=== PATIENT | male | born 1965 | race Caucasian/White ===

== ENCOUNTER 2022-04-09 13:06 | Inpatient (IN) | payer OTHER, SELFPAY ==
--- NOTE | ~2022-04-09 | US_ITS ---
EXAMINATION: US ABDOMEN COMPLETE CLINICAL INFORMATION: Transaminitis. COMPARISON: None TECHNIQUE: Real-time imaging of the abdominal viscera. FINDINGS: PANCREAS: The visualized head and body of the pancreas appears unremarkable. Remainder of the pancreas is obscured by bowel gas. ABDOMINAL AORTA: The proximal, mid, and distal segments are normal in caliber. INFERIOR VENA CAVA: Visualized portions are normal. LIVER: Mild increased parenchymal echogenicity.. No focal hepatic lesion. There is no intrahepatic biliary duct dilatation seen. GALLBLADDER: Partially contracted . No evidence of stones, sludge, polyps, wall thickening or pericholecystic fluid. COMMON BILE DUCT: Normal in caliber measuring 0.3 cm in diameter. RIGHT KIDNEY: Normal. No hydronephrosis. No renal calculi or focal parenchymal lesions. The kidney measures 10.9 cm in maximum dimension. LEFT KIDNEY: Normal. No hydronephrosis. No renal calculi or focal parenchymal lesions. The kidney measures 10.9 cm in maximum dimension. SPLEEN: Normal. The spleen measures 10.9 cm in maximum dimension. FREE FLUID: None. US/US abdomen complete IMPRESSION: There is generalized increase in hepatic echotexture, consistent with fatty infiltration or hepatocellular disease. Please correlate clinically. No focal hepatic mass or intrahepatic biliary duct dilatation is seen. No evidence of gallstones.
--- NOTE | 2022-04-09 07:05 | ECG_ITS ---
Test Reason : MED CLEARANCE Blood Pressure : / mmHG Vent. Rate : 080 BPM Atrial Rate : 080 BPM P-R Int : 132 ms QRS Dur : 088 ms QT Int : 364 ms P-R-T Axes : 040 066 064 degrees QTc Int : 419 ms Normal sinus rhythm Normal ECG No previous ECGs available Referred By: Chantell Jimenez Electronically Signed By:BOLIVAR ALEGRIA MD
--- NOTE | 2022-04-09 13:09 | ED.PSYCH ---
HPI - Psych General Chief Complaint: Psychiatric Symptoms Stated Complaint: SI, HI Time Seen by Provider: 04/09/22 13:09 Source: patient and EMS Mode of arrival: EMS Limitations: no limitations History of Present Illness HPI Narrative: 57 yo male with longstanding history of bipolar disorder, PTSD requiring multiple inpatient hospitalizations in the past who presents to the ER via EMS on a section 12 from the community with SI. He reports a history of recent admission to [facility] for SI about 1 month ago. He reports knowing when I need to be committed and turn myself in. He was reportedly seen by [facility] where he went for help. He states he is suicidal and has access to guns with plan to shoot himself. He recently found out that his son has a heroin problem. He has been loaning his son money and found out it all has been going to drugs. Patient denies any illicit drug use himself, except for marijuana. He has been compliant with all of his medications and he goes crazy when I dont take them. He denies homocidal ideation which was initially reported from EMS. He states he does not hurt good people. MD complaint: suicidal ideation and homicidal ideation Onset (ago): unknown Duration: constant History of same: Yes Relieving factors: none Context: significant life stressor Associated psychiatric symptoms: depression and suicidal ideation Associated symptoms: denies other symptoms Treatments prior to arrival: placed on mental health hold If self harm: admits thoughts of self harm and has plan Details of plan: to shoot himself with a gun Related Data Allergies Allergy/AdvReac Type Severity Reaction Status Date / Time No Known Allergies Allergy Unverified 07/04/20 17:59 Review of Systems Review of Systems: Constitutional: No Fever, No Chills ENT/Mouth: No sore throat, No Rhinorrhea, No Swallowing Difficulty Eyes: No Eye Pain, No Swelling, No Redness Cardiovascular: No Chest Pain, No SOB, No Orthopnea, No Edema Respiratory: No Cough, No Sputum, No Wheezing, No dyspnea Gastrointestinal: No Nausea, No Vomiting, No Diarrhea, No abdominal Pain Genitourinary: No Dysuria, No Urinary Frequency, No Hematuria Musculoskeletal: No joint pain, No Myalgias Skin: No Skin Lesions, No rash Neuro: No Weakness, No Numbness, No Dizziness, No Headache Psych: + Anxiety/Panic, + Depression, +SI, No HI, No AH, No VH Heme/Lymph: No Bruising, No Lymphadenopathy Endocrine: No Polyuria, No Polydipsia PMFSH Social History Social History Advance Directives: No Advance Directives Information Provided: No Physical Exam Vital Signs: Vital Signs: Last Vital Signs Temp 97.6 F 04/09/22 13:24 Pulse 81 04/09/22 13:24 Resp 19 04/09/22 13:24 BP 109/72 04/09/22 13:24 Pulse Ox 98 04/09/22 13:24 O2 Del Method 04/09/22 13:24 BMI result Body Mass Index 22.7 Appearance: Alert. Oriented X3. No acute distress. Tearful Eyes: Pupils equal, round and reactive to light. ENT: Pharynx normal. Neck: Normal inspection. Neck supple. CVS: Normal heart rate and rhythm. Pulses normal. Respiratory: No respiratory distress. Breath sounds normal. Abdomen: Soft and nontender. +BS x4 Skin: Skin warm and dry. Normal skin color. Normal skin turgor. No rashes. Extremities: No lower extremity edema. Neuro/Psych: Oriented X 3. No motor deficit. No sensory deficit. CN II-XII intact. makes eye contact and is conversant, repetative. anxious, tearful, suicidal. Course Course Course Narrative: 57-year-old male with a history of bipolar disorder and PTSD who presents to the ER with suicidal ideation with a plan to shoot himself. He has access to guns. There was reported history of homicidal ideation as well but patient adamantly denying this on arrival to the ER. He is tearful and anxious. He states he knows when he needs to be committed. He is on a Section 12 from the community and reportedly is already a inpatient bed search. Will get medical clearance and closely monitor. Med rec pending. Reevaluation(s) Reevaluation #1: Labs showed pancytopenia. Unknown baseline. He also has mild elevation of his LFTs. Unknown if he has a history of liver disease/hepatitis. Will get records from [facility] for his baseline blood work. He is positive for marijuana and alcohol. ETOH 235. His lab workup here in June 2010 did show mild elevation of his transaminases. Still attempting to get records from [facility]. Reevaluation #2: Physician observation started at 15:30. Patient placed in physician observation because patient is awaiting [facility] evaluation for the possible need of inpatient psych admission. At the time observation was started patient's vital signs were stable. Patient is alert and oriented. Neuro exam is non-focal. CV: RRR and lungs are clear. Will continue to monitor. [facility] - Psych Lab Data Result diagrams: 04/09/22 13:55 04/09/22 13:55 Labs: Lab Results 04/09/22 04/09/22 04/09/22 Range/Units 13:49 13:50 13:55 WBC 3.3 L (4.8-10.8) X10*3/uL RBC 4.20 L (4.60-5.80) X10*6/uL Hgb 13.9 L (14.0-18.0) g/dl Hct 40.2 L (42.0-52.0) % MCV 95.7 (80.0-98.0) fL MCH 33.1 H (27.0-33.0) pg MCHC 34.6 (31.0-36.0) g/dl RDW 12.0 (11.0-16.0) % Plt Count 153 L (160-400) X10*3/uL MPV 9.1 L (9.4-12.4) fL Immature Gran % (Auto) 0.3 (0.0-0.4) % Neut % (Auto) 50.3 (45-73) % Lymph % (Auto) 35.0 (20-40) % Allen % (Auto) 12.9 H (2-11) % Eos % (Auto) 1.2 (0-4) % Baso % (Auto) 0.3 (0-2) % Lymph # (Auto) 1.2 (1.2-4.9) X10*3/uL Allen # (Auto) 0.4 (0.1-1.2) X10*3/uL Eos # (Auto) 0.0 (0.0-0.4) X10*3/uL Baso # (Auto) 0.0 (0.0-0.2) X10*3/uL Abs Immat Gran (auto) 0.01 (0.00-0.03) X10*3/uL Absolute Neuts (auto) 1.7 L (2.0-8.3) x10*3/uL Absolute Nucleated RBC 0.000 (0.0-0.012) X10*3/uL Nucleated RBC % (auto) 0.0 (0.0-0.2) /100WBC Sodium (135-145) mmol/L Potassium (3.3-5.1) mmol/L Chloride (96-108) mmol/L Carbon Dioxide (22-29) mmol/L Anion Gap (12-20) BUN (9-16) mg/dL Creatinine (0.5-1.4) mg/dL Estim Creat Clear Calc Estimated GFR Random Glucose (60-115) mg/dL Calcium (8.4-10.2) mg/dL Magnesium (1.6-2.6) mg/dL Total Bilirubin (0.0-1.0) mg/dL Direct Bilirubin (0.0-0.5) mg/dL AST (5-37) U/L ALT (0-40) U/L Alkaline Phosphatase (39-117) U/L Total Protein (6.5-8.0) g/dL Albumin (3.5-5.0) g/dL Urine Opiates Screen Not Detected (Not Detect) Urine Fentanyl Screen Not Detected (Not Detect) Ur Barbiturates Screen Not Detected (Not Detect) Ur Phencyclidine Scrn Not Detected (Not Detect) Ur Amphetamines Screen Not Detected (Not Detect) U Benzodiazepines Scrn Not Detected (Not Detect) Urine Cocaine Screen Not Detected (Not Detect) U Marijuana (THC) Screen POSITIVE H (Not Detect) Ethyl Alcohol mg/dL COVID-19 ([facility]) Negative (Negative) COVID-19 Clin Com See Note 04/09/22 04/09/22 Range/Units 13:55 13:55 WBC (4.8-10.8) X10*3/uL RBC (4.60-5.80) X10*6/uL Hgb (14.0-18.0) g/dl Hct (42.0-52.0) % MCV (80.0-98.0) fL MCH (27.0-33.0) pg MCHC (31.0-36.0) g/dl RDW (11.0-16.0) % Plt Count (160-400) X10*3/uL MPV (9.4-12.4) fL Immature Gran % (Auto) (0.0-0.4) % Neut % (Auto) (45-73) % Lymph % (Auto) (20-40) % Allen % (Auto) (2-11) % Eos % (Auto) (0-4) % Baso % (Auto) (0-2) % Lymph # (Auto) (1.2-4.9) X10*3/uL Allen # (Auto) (0.1-1.2) X10*3/uL Eos # (Auto) (0.0-0.4) X10*3/uL Baso # (Auto) (0.0-0.2) X10*3/uL Abs Immat Gran (auto) (0.00-0.03) X10*3/uL Absolute Neuts (auto) (2.0-8.3) x10*3/uL Absolute Nucleated RBC (0.0-0.012) X10*3/uL Nucleated RBC % (auto) (0.0-0.2) /100WBC Sodium 139 (135-145) mmol/L Potassium 3.3 (3.3-5.1) mmol/L Chloride 99 (96-108) mmol/L Carbon Dioxide 28 (22-29) mmol/L Anion Gap 15 (12-20) BUN 12 (9-16) mg/dL Creatinine 1.11 (0.5-1.4) mg/dL Estim Creat Clear Calc 69.1 Estimated GFR > 60 Random Glucose 120 H (60-115) mg/dL Calcium 9.1 (8.4-10.2) mg/dL Magnesium 1.9 (1.6-2.6) mg/dL Total Bilirubin 1.8 H (0.0-1.0) mg/dL Direct Bilirubin 1.0 H (0.0-0.5) mg/dL AST 190 H (5-37) U/L ALT 99 H (0-40) U/L Alkaline Phosphatase 84 (39-117) U/L Total Protein 7.4 (6.5-8.0) g/dL Albumin 4.4 (3.5-5.0) g/dL Urine Opiates Screen (Not Detect) Urine Fentanyl Screen (Not Detect) Ur Barbiturates Screen (Not Detect) Ur Phencyclidine Scrn (Not Detect) Ur Amphetamines Screen (Not Detect) U Benzodiazepines Scrn (Not Detect) Urine Cocaine Screen (Not Detect) U Marijuana (THC) Screen (Not Detect) Ethyl Alcohol 235 mg/dL COVID-19 ([facility]) (Negative) COVID-19 Clin Com Discharge Plan Discharge Clinical Impression: Suicidal ideation, Pancytopenia, Elevated liver enzymes Patient Disposition: Still a Patient
[2022-04-09 13:15] VITALS: BP 130/70; PULSE 92; O2SAT 95
[2022-04-09 13:24] VITALS: BP 109/72; PULSE 81; RESP 19; TEMP 36.4; O2SAT 98; BMI 22.7
[2022-04-09 14:10] LABS: MANUAL DIFF FLAG NO
[2022-04-09 14:13] LABS: Basophils Percent Auto 0.3 % (0-2); Eosinophils Percent Auto 1.2 % (0-4); Hematocrit 40.2 % (42.0-52.0); Hemoglobin 13.9 g/dl (14.0-18.0); Imm Gran Abs Auto 0.01 X10*3/uL (0.00-0.03); Imm Gran Pct Auto 0.3 % (0.0-0.4); Lymphocytes Absolute Auto 1.2 X10*3/uL (1.2-4.9); Mean Corpuscular HGB Conc 34.6 g/dl (31.0-36.0); Mean Corpuscular Hemoglobin 33.1 pg (27.0-33.0); Mean Corpuscular Volume 95.7 fL (80.0-98.0); Mean Platelet Volume 9.1 fL (9.4-12.4); Monocytes Absolute Auto 0.4 X10*3/uL (0.1-1.2); Monocytes Percent Auto 12.9 % (2-11); Neutrophils Absolute Auto 1.7 x10*3/uL (2.0-8.3); Neutrophils Percent Auto 50.3 % (45-73); Platelet Count 153 X10*3/uL (160-400); White Blood Count 3.3 X10*3/uL (4.8-10.8)
[2022-04-09 14:27] LABS: Ethanol 235 mg/dL
[2022-04-09 14:28] LABS: COVID-19 Test Negative (Negative); IDNOW Serial# 9DD0AD1C
[2022-04-09 14:29] LABS: Amphetamine Screen Urine Not Detected (Not Detect); Barbiturates, Urine Not Detected (Not Detect); Benzodiazepines Screen Urine Not Detected (Not Detect); Cannabinoid Screen Urine POSITIVE (Not Detect); Cocaine Screen Urine Not Detected (Not Detect); Fentanyl, urine Not Detected (Not Detect); Opiate Screen Urine Not Detected (Not Detect); Phencyclidine Screen Urine Not Detected (Not Detect)
[2022-04-09 14:31] LABS: Alanine Aminotransferase 99 U/L (0-40); Albumin Level 4.4 g/dL (3.5-5.0); Alkaline Phosphatase 84 U/L (39-117); Anion Gap 15 (12-20); Aspartate Amino Transferase 190 U/L (5-37); Bilirubin Total 1.8 mg/dL (0.0-1.0); Blood Urea Nitrogen 12 mg/dL (9-16); Calcium 9.1 mg/dL (8.4-10.2); Carbon Dioxide 28 mmol/L (22-29); Chloride 99 mmol/L (96-108); Creatinine Clr Calc Pharmacy 69.1; Estimated Glomerular Filt Rate > 60; Glucose Random 120 mg/dL (60-115); Magnesium 1.9 mg/dL (1.6-2.6); Potassium 3.3 mmol/L (3.3-5.1); Sodium 139 mmol/L (135-145); Total Protein 7.4 g/dL (6.5-8.0)
--- NOTE | 2022-04-09 14:46 | PC.NURSE ---
had si thoughts prior to coming to the ED, that's why I came here. I don't want to do something stupid like that , feels safe here and not suicidal at this moment, pleasant and cooperative, eating lunch, said that he cut his wrist yesterday but nothing is visible.
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
--- NOTE | 2022-04-09 18:35 | PC.NURSE ---
RN-RN report given to M3.
[2022-04-09 21:15] VITALS: BP 113/69; PULSE 85; RESP 16; TEMP 37.2; O2SAT 95; BMI 19.3
--- NOTE | 2022-04-09 21:51 | PC.ADMIT ---
Pt is a 57 year old male admitted for concerns of SI with a plan to use a gun. Pt is alert and oriented X4, VSS, Covid negative, Pt expressed to [facility] that he has been having thoughts of SI for the past 3 days. Pt endorsed history of SI attempt with a plan to cut his wrist. Speech is clear with regular rate and rhythm. Pt reports of AH and delusions involving father taking over his body and causing him to have homicidal thoughts directed at male predators and bad people .Pt is engaging, with slight hearing difficulty. Pt presents with tremors in the hands saying that he has been like that since he was a child. Pt is currently living with a friend and his . Admission orders obtained.
[2022-04-09] MEDS: QUEtiapine Fumarate 200 MG TABLET PO (23:04)
[2022-04-09] MEDS: risperiDONE 2 MG TABLET PO (23:04)
--- NOTE | 2022-04-10 02:47 | PC.NURSE ---
Staff's donato wrongfully brought on the unit. Neche retrieved from Pt's belongings. Belongings list updated.
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
[2022-04-10 09:34] LABS: Estimated Average Glucose 82 mg/dL; Hemoglobin A1c % 4.5 %
[2022-04-10 10:15] LABS: Cholesterol 160 mg/dL; HDL Cholesterol 102 mg/dL; LDL Cholesterol Calculated 48 mg/dl; Magnesium 1.5 mg/dL (1.6-2.6); Triglycerides 50 mg/dL
[2022-04-10 10:38] LABS: Free T4 (Free Thyroxine) 0.92 ng/dL (0.71-1.85); Thyroid Stimulating Hormone 6.03 uIU/mL (0.32-4.0)
[2022-04-10 11:11] LABS: Folate 6.6 ng/mL (> or = 4.0); Vitamin B12 726 pg/mL (200-900)
--- NOTE | 2022-04-10 11:25 | MHC.CLN ---
NUTRITION PATIENT IS 83% IBW WITH BMI=19.3. REPORTS DECREASED APPETITE AND WEIGHT LOSS PRIOR TO ADMISSION. REPORTS THAT APPETITE IS IMPROVING AND EATING BETTER NOW. ADDING ENSURE TID PER CONVERSATION WITH PATIENT. PROVIDES [address], [address] TO FOLLOW WEEKLY.
[2022-04-10 11:28] VITALS: BMI 19.3
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
[2022-04-10] MEDS: risperiDONE 2 MG TABLET PO (21:31)
[2022-04-10] MEDS: Magnesium Oxide 400 MG TABLET PO (21:31)
[2022-04-10] MEDS: QUEtiapine Fumarate 200 MG TABLET PO (21:31)
[2022-04-10 21:36] VITALS: BP 132/72; PULSE 84; RESP 18; TEMP 36.9; O2SAT 99
[2022-04-11 06:00] VITALS: BP 137/81; PULSE 90; RESP 16; TEMP 36.9; O2SAT 94
[2022-04-11 07:42] LABS: Hematocrit 38.2 % (42.0-52.0); Hemoglobin 13.3 g/dl (14.0-18.0); Mean Corpuscular HGB Conc 34.8 g/dl (31.0-36.0); Mean Corpuscular Hemoglobin 33.7 pg (27.0-33.0); Mean Corpuscular Volume 96.7 fL (80.0-98.0); Mean Platelet Volume 9.7 fL (9.4-12.4); Platelet Count 111 X10*3/uL (160-400); Red Blood Count 3.95 X10*6/uL (4.60-5.80); Red Cell Distribution Width 11.8 % (11.0-16.0)
[2022-04-11 07:48] LABS: White Blood Count 2.5 X10*3/uL (4.8-10.8)
[2022-04-11 07:52] LABS: Prothrombin Time 11.3 SEC (9.9-13.0)
[2022-04-11 08:09] LABS: Alanine Aminotransferase 84 U/L (0-40); Albumin Level 3.9 g/dL (3.5-5.0); Alkaline Phosphatase 74 U/L (39-117); Aspartate Amino Transferase 139 U/L (5-37); Bilirubin Direct 0.9 mg/dL (0.0-0.5); Bilirubin Total 1.5 mg/dL (0.0-1.0); Blood Urea Nitrogen 15 mg/dL (9-16); Calcium 9.5 mg/dL (8.4-10.2); Creatinine Clr Calc Pharmacy 81.6; Estimated Glomerular Filt Rate > 60; Glucose Fasting 98 mg/dL (60-99); Magnesium 1.5 mg/dL (1.6-2.6); Total Protein 6.6 g/dL (6.5-8.0)
[2022-04-11 08:16] LABS: Anion Gap 12 (12-20); Carbon Dioxide 28 mmol/L (22-29); Chloride 100 mmol/L (96-108); Potassium 4.2 mmol/L (3.3-5.1); Sodium 136 mmol/L (135-145)
[2022-04-11] MEDS: Magnesium Oxide 400 MG TABLET PO ×2 (08:45→16:41)
--- NOTE | 2022-04-11 11:18 | P.PNPSI_ITS ---
Subjective Subjective Date of Service: 04/11/22 Reason For Visit: SI, AUD Subjective Notes: Conditional Voluntary Interim History: abdominal ultrasound showed no gallstones and moderate fatty liver. continues with audotry and visual hallucinations. WBC, RBC, HgB and Hct trending lower this am. Consult with Marty Lou regarding ultrasound results and blood work: pancytopenia from ETOH use and chronic in nature; tW contacted Marty pulido to discuss pancytopenisa and he say no further treatment needed- other than no ETOH use. Medication Compliance: Yes Side effects from medications: No Attending Groups: No Review of Systems Acute medical concerns: No pancytopenia Medical Review of Systems: unchanged Review of Systems Review of Systems Constitutional: No Fever, No Chills ENT/Mouth: No sore throat, No Rhinorrhea, No Swallowing Difficulty Eyes: No Eye Pain, No Swelling, No Redness Cardiovascular: No Chest Pain, No SOB, No Orthopnea, No Edema Respiratory: No Cough, No Sputum, No Wheezing, No dyspnea Gastrointestinal: No Nausea, No Vomiting, No Diarrhea, No abdominal Pain Genitourinary: No Dysuria, No Urinary Frequency, No Hematuria Musculoskeletal: No joint pain, No Myalgias Skin: No Skin Lesions, No rash Neuro: No Weakness, No Numbness, No Dizziness, No Headache Psych: + Anxiety/Panic, + Depression, +SI, No HI, No AH, No VH Heme/Lymph: No Bruising, No Lymphadenopathy Endocrine: No Polyuria, No Polydipsia Yes all other systems are reviewed and are negative Mental Status Exam Mental Status Exam Narrative: appears thin. cooperative. speech incr in rate and amount, decr latency. mnl loudness and prosody. thoughts linear and logical in response to questions, spontaneously circumstantial/a litte loose. affect hyper-intense, nml range, min-labile. mood good. denies SI/HI. endorses what might be considered AVH, not in a psychotic way but rather more in a trauma-history way. he retains isight that the AVH are not real. Diagnostics Vital Signs (24Hr): Vital Signs - 24 hr 04/10/22 21:36 04/11/22 06:00 Temperature 98.4 F 98.4 F Pulse Rate 84 90 Respiratory Rate 18 16 Blood Pressure 132/72 137/81 Pulse Oximetry 99 94 Oxygen Delivery Method Room Air Room Air BMI result Body Mass Index 19.3 Labs Results: 04/11/22 07:16 04/11/22 07:16 Labs: Laboratory Results - last 48 hr 04/09/22 04/09/22 04/09/22 13:49 13:50 13:55 WBC 3.3 L RBC 4.20 L Hgb 13.9 L Hct 40.2 L MCV 95.7 MCH 33.1 H MCHC 34.6 RDW 12.0 Plt Count 153 L MPV 9.1 L Immature Gran % (Auto) 0.3 Neut % (Auto) 50.3 Lymph % (Auto) 35.0 [place] % (Auto) 12.9 H Eos % (Auto) 1.2 Baso % (Auto) 0.3 Lymph # (Auto) 1.2 [place] # (Auto) 0.4 Eos # (Auto) 0.0 Baso # (Auto) 0.0 Abs Immat Gran (auto) 0.01 Absolute Neuts (auto) 1.7 L Absolute Nucleated RBC 0.000 Nucleated RBC % (auto) 0.0 PT INR Sodium Potassium Chloride Carbon Dioxide Anion Gap BUN Creatinine Estim Creat Clear Calc Estimated GFR Random Glucose Fasting Glucose Estimat Average Glucose Hemoglobin A1c % Calcium Magnesium Total Bilirubin Direct Bilirubin AST ALT Alkaline Phosphatase Total Protein Albumin Triglycerides Cholesterol LDL Cholesterol, Calc HDL Cholesterol Vitamin B12 Folate TSH Free T4 Urine Opiates Screen Not Detected Urine Fentanyl Screen Not Detected Ur Barbiturates Screen Not Detected Ur Phencyclidine Scrn Not Detected Ur Amphetamines Screen Not Detected U Benzodiazepines Scrn Not Detected Urine Cocaine Screen Not Detected U Marijuana (THC) Screen POSITIVE H Ethyl Alcohol COVID-19 ([facility]) Negative COVID-19 Clin Com See Note 04/09/22 04/09/22 04/10/22 13:55 13:55 08:57 WBC RBC Hgb Hct MCV MCH MCHC RDW Plt Count MPV Immature Gran % (Auto) Neut % (Auto) Lymph % (Auto) [place] % (Auto) Eos % (Auto) Baso % (Auto) Lymph # (Auto) [place] # (Auto) Eos # (Auto) Baso # (Auto) Abs Immat Gran (auto) Absolute Neuts (auto) Absolute Nucleated RBC Nucleated RBC % (auto) PT INR Sodium 139 Potassium 3.3 Chloride 99 Carbon Dioxide 28 Anion Gap 15 BUN 12 Creatinine 1.11 Estim Creat Clear Calc 69.1 Estimated GFR > 60 Random Glucose 120 H Fasting Glucose Estimat Average Glucose 82 Hemoglobin A1c % 4.5 Calcium 9.1 Magnesium 1.9 Total Bilirubin 1.8 H Direct Bilirubin 1.0 H AST 190 H ALT 99 H Alkaline Phosphatase 84 Total Protein 7.4 Albumin 4.4 Triglycerides Cholesterol LDL Cholesterol, Calc HDL Cholesterol Vitamin B12 Folate TSH Free T4 Urine Opiates Screen Urine Fentanyl Screen Ur Barbiturates Screen Ur Phencyclidine Scrn Ur Amphetamines Screen U Benzodiazepines Scrn Urine Cocaine Screen U Marijuana (THC) Screen Ethyl Alcohol 235 COVID-19 ([facility]) COVID-19 [employer] 04/10/22 04/10/22 04/11/22 08:57 08:57 07:16 WBC 2.5 L RBC 3.95 L Hgb 13.3 L Hct 38.2 L MCV 96.7 MCH 33.7 H MCHC 34.8 RDW 11.8 Plt Count 111 L D MPV 9.7 Immature Gran % (Auto) Neut % (Auto) Lymph % (Auto) [place] % (Auto) Eos % (Auto) Baso % (Auto) Lymph # (Auto) [place] # (Auto) Eos # (Auto) Baso # (Auto) Abs Immat Gran (auto) Absolute Neuts (auto) Absolute Nucleated RBC 0.000 Nucleated RBC % (auto) 0.0 PT INR Sodium Potassium Chloride Carbon Dioxide Anion Gap BUN Creatinine Estim Creat Clear Calc Estimated GFR Random Glucose Fasting Glucose Estimat Average Glucose Hemoglobin A1c % Calcium Magnesium 1.5 L Total Bilirubin Direct Bilirubin AST ALT Alkaline Phosphatase Total Protein Albumin Triglycerides 50 Cholesterol 160 LDL Cholesterol, Calc 48 HDL Cholesterol 102 Vitamin B12 726 Folate 6.6 TSH 6.03 H Free T4 0.92 Urine Opiates Screen Urine Fentanyl Screen Ur Barbiturates Screen Ur Phencyclidine Scrn Ur Amphetamines Screen U Benzodiazepines Scrn Urine Cocaine Screen U Marijuana (THC) Screen Ethyl Alcohol COVID-19 ([facility]) [email or web address] 04/11/22 04/11/22 07:16 07:16 WBC RBC Hgb Hct MCV MCH MCHC RDW Plt Count MPV Immature Gran % (Auto) Neut % (Auto) Lymph % (Auto) [place] % (Auto) Eos % (Auto) Baso % (Auto) Lymph # (Auto) [place] # (Auto) Eos # (Auto) Baso # (Auto) Abs Immat Gran (auto) Absolute Neuts (auto) Absolute Nucleated RBC Nucleated RBC % (auto) PT 11.3 INR 1.0 Sodium 136 Potassium 4.2 D Chloride 100 Carbon Dioxide 28 Anion Gap 12 BUN 15 Creatinine 0.80 Estim Creat Clear Calc 81.6 Estimated GFR > 60 Random Glucose Fasting Glucose 98 Estimat Average Glucose Hemoglobin A1c % Calcium 9.5 Magnesium 1.5 L Total Bilirubin 1.5 H Direct Bilirubin 0.9 H AST 139 H ALT 84 H Alkaline Phosphatase 74 Total Protein 6.6 Albumin 3.9 Triglycerides Cholesterol LDL Cholesterol, Calc HDL Cholesterol Vitamin B12 Folate TSH Free T4 Urine Opiates Screen Urine Fentanyl Screen Ur Barbiturates Screen Ur Phencyclidine Scrn Ur Amphetamines Screen U Benzodiazepines Scrn Urine Cocaine Screen U Marijuana (THC) Screen Ethyl Alcohol COVID-19 ([facility]) COVID-19 Clin Com Imaging Radiology Impressions: ITS Impressions Abdomen Ultrasound 04/11/22 07:50 IMPRESSION: There is generalized increase in hepatic echotexture, consistent with fatty infiltration or hepatocellular disease. Please correlate clinically. No focal hepatic mass or intrahepatic biliary duct dilatation is seen. No evidence of gallstones. Medications Medications Current Medications Acetaminophen (Acetaminophen 325 Mg Tablet) 650 mg PO Q6H PRN PRN Reason: Headache/Pain Mild Scale (1-3) Al Hydroxide/Mg Hydroxide (Magnesium Hydrox/Alum Hydrox 30 Ml Oral.Susp) 30 ml PO Q6H PRN PRN Reason: Heartburn/Nausea Hydroxyzine HCl (Hydroxyzine Hcl 25 Mg Tablet) 25 mg PO Q6H PRN PRN Reason: Anxiety Lorazepam (Lorazepam 1 Mg Tablet) 1 mg PO Q2H PRN PRN Reason: CIWA 8-11 Lorazepam (Lorazepam 1 Mg Tablet) 2 mg PO Q2H PRN PRN Reason: CIWA 12-15 Lorazepam (Lorazepam 1 Mg Tablet) 3 mg PO Q2H PRN PRN Reason: CIWA > 15. alert MD. Magnesium Hydroxide (Milk Of Magnesia 30 Ml Oral.Susp) 30 ml PO DAILY PRN PRN Reason: Constipation Magnesium Oxide (Magnesium Oxide 400 Mg Tablet) 400 mg PO BIDPC [facility] Last Admin: 04/11/22 08:45 Dose: 400 mg Quetiapine Fumarate (Quetiapine Fumarate 200 Mg Tablet) 200 mg PO BEDTIME [facility] Last Admin: 04/10/22 21:31 Dose: 200 mg Risperidone (Risperidone 2 Mg Tablet) 2 mg PO BEDTIME [facility] Last Admin: 04/10/22 21:31 Dose: 2 mg Trazodone HCl (Trazodone Hcl 50 Mg Tablet) 50 mg PO BEDTIME PRN PRN Reason: Insomnia Allergies Allergies Allergy/AdvReac Type Severity Reaction Status Date / Time No Known Allergies Allergy Unverified 07/04/20 17:59 Assessment & Plan Assessment & Plan (1) Alcoholic fatty liver: Status: Acute Code(s): K70.0 - Alcoholic fatty liver Plan 57-year-old male admitted to inpatient psychiatry, consult requested for elevated LFTs and pancytopenia Alcoholic liver disease complicated by pancytopenia Follow-up INR, abdomen ultrasound, alcohol abstinence Alcohol dependence with mild withdrawal Will defer to primary team Hypomagnesemia Due to alcohol use, replace, monitor Plan CIWA ativan for WD symptoms restart/continue home meds of seroquel and risperidone. investigate elevated LFTs and pancytopenia. stabilize and return to outpt treatment. I spent 25_ minutes with the patient and/or on the patient floor today, greater than?50% of which was spent counseling/coordinating care. Reason for contiued inpatient stay Substantial Risk for: harm to self, inability to function, rapid decompensation and med/psych decompensation
[2022-04-11 16:02] VITALS: BP 116/76; PULSE 102; RESP 18; O2SAT 100
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
[2022-04-11 20:35] VITALS: BP 127/71; PULSE 88; RESP 18; TEMP 36.9; O2SAT 99
[2022-04-11] MEDS: QUEtiapine Fumarate 200 MG TABLET PO (21:12)
[2022-04-11] MEDS: risperiDONE 2 MG TABLET PO (21:12)
[2022-04-12 03:45] VITALS: BP 186/96; PULSE 125; RESP 20; TEMP 36.7; O2SAT 97
[2022-04-12] MEDS: LORazepam 1 MG TABLET PO ×2 (03:53→08:04)
[2022-04-12] MEDS: cloNIDine HCL 0.1 MG TABLET PO (03:53)
[2022-04-12 05:04] VITALS: BP 107/75; PULSE 105; RESP 18; TEMP 36.6; O2SAT 99
--- NOTE | 2022-04-12 05:37 | PC.NURSE ---
Addendum entered by Ree Cross RN 04/12/22 06:46: 0615, pt was found with blue craft paint on lips, when asked about it he stated it was candy . Original Note: Pt woke up at 0031, came into hallway appearing somewhat disoriented stating Do I need to clean to bathroom and floors? when redirected stated he was startled awake from the staff doing checks . Returned to bed. Pt came out again at 0230 stating I saw on the camera the lady fell and he was going in to help her while entering room 319. When asked if he knew where he was, pt seemed frustrated and said YES! Again at 0315 came out into hallway and stated he need to go outside to [place] [address] [facility] [address] When told that he was in [place] he stated I know that! Took VS which were 186/96, HR 125 at [address] cleaner Dr[address] Weinberg for med order for Clonidine. Clonidine and Ativan given at 0353. 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 Pt has also been speaking in bengali to me during this morning when he usually knows that I do not understand bengali. Repeated VS @ 0440 97.8, 107/75, HR 105, 99%. loading checker contacted again and ordered urgent labs, Ammonia, CBC, CMAP and U/A for pt. POC @ 0533 was 115. Will continue to monitor.
[2022-04-12 05:41] LABS: Glucose, Whole Blood 115 mg/dL (60-115)
[2022-04-12 06:46] LABS: Appearance Urine HAZY; Color Urine DK YELLOW; Glucose Urine UA NEG (NEG); Leukocyte Esterase Urine TRACE (NEG); Nitrite Urine NEG (NEG); Urine Blood 2+ (NEG); Urine Ketones NEG (NEG); Urine Protein TRACE MG/DL (NEG-TRACE)
[2022-04-12 06:56] LABS: Bacteria Urine TRACE /LPF; Hyaline Casts Urine 0-2 /LPF; Mucus Urine 1+ /LPF; Squamous Epithelial Cell Urine 2+ /LPF
[2022-04-12 07:00] LABS: MANUAL DIFF FLAG NO
[2022-04-12 07:02] LABS: Basophils Percent Auto 0.6 % (0-2); Eosinophils Absolute Auto 0.1 X10*3/uL (0.0-0.4); Hematocrit 39.4 % (42.0-52.0); Hemoglobin 13.4 g/dl (14.0-18.0); Imm Gran Abs Auto 0.02 X10*3/uL (0.00-0.03); Imm Gran Pct Auto 0.6 % (0.0-0.4); Lymphocytes Absolute Auto 0.8 X10*3/uL (1.2-4.9); Lymphocytes Percent Auto 24.3 % (20-40); Mean Corpuscular Hemoglobin 33.3 pg (27.0-33.0); Monocytes Absolute Auto 0.3 X10*3/uL (0.1-1.2); Monocytes Percent Auto 8.7 % (2-11); Neutrophils Absolute Auto 2.2 x10*3/uL (2.0-8.3); Neutrophils Percent Auto 63.8 % (45-73); Platelet Count 130 X10*3/uL (160-400); Red Blood Count 4.02 X10*6/uL (4.60-5.80); Red Cell Distribution Width 11.9 % (11.0-16.0); White Blood Count 3.5 X10*3/uL (4.8-10.8)
[2022-04-12 07:08] LABS: Ammonia 26 umol/L (13-55)
[2022-04-12 07:18] LABS: Alanine Aminotransferase 91 U/L (0-40); Albumin Level 4.5 g/dL (3.5-5.0); Alkaline Phosphatase 74 U/L (39-117); Anion Gap 13 (12-20); Aspartate Amino Transferase 127 U/L (5-37); Bilirubin Total 1.6 mg/dL (0.0-1.0); Blood Urea Nitrogen 14 mg/dL (9-16); Calcium 9.9 mg/dL (8.4-10.2); Carbon Dioxide 27 mmol/L (22-29); Chloride 101 mmol/L (96-108); Estimated Glomerular Filt Rate > 60; Glucose Fasting 138 mg/dL (60-99); Potassium 4.5 mmol/L (3.3-5.1); Sodium 136 mmol/L (135-145); Total Protein 7.5 g/dL (6.5-8.0)
[2022-04-12 07:55] VITALS: BP 99/66; PULSE 104; RESP 20; TEMP 36.6; O2SAT 98
[2022-04-12] MEDS: Acetaminophen 325 MG TABLET 650 MG PO (08:03)
[2022-04-12] MEDS: Magnesium Oxide 400 MG TABLET PO (08:04)
[2022-04-12 09:54] LABS: Appearance Urine HAZY; Color Urine YELLOW; Glucose Urine UA NEG (NEG); Leukocyte Esterase Urine TRACE (NEG); Nitrite Urine NEG (NEG); UACC Culture Trigger NO; Urine Blood 2+ (NEG); Urine Ketones NEG (NEG); Urine Protein NEG (NEG-TRACE)
[2022-04-12 10:00] VITALS: BP 100/66; PULSE 94; RESP 18; TEMP 36.9; O2SAT 100
[2022-04-12 10:06] LABS: UACC CULT YES
[2022-04-12 10:07] LABS: Bacteria Urine TRACE /LPF; Hyaline Casts Urine 0-2 /LPF; Mucus Urine 1+ /LPF; Squamous Epithelial Cell Urine TRACE /LPF
[2022-04-12 10:13] LABS: Ammonia 26 umol/L (13-55)
[2022-04-12 10:22] LABS: Anion Gap 13 (12-20); Carbon Dioxide 29 mmol/L (22-29); Chloride 97 mmol/L (96-108); Magnesium 1.6 mg/dL (1.6-2.6); Potassium 4.2 mmol/L (3.3-5.1); Sodium 135 mmol/L (135-145)
[2022-04-12] MEDS: LORazepam 1 MG TABLET 2 MG PO ×3 (10:34→13:55)
[2022-04-12 10:44] LABS: TSH reflex Free T4 5.39 uIU/mL (0.32-4.0)
[2022-04-12] MEDS: Thiamine HCL 200 MG/2 ML VIAL 100 MG IM (11:17)
[2022-04-12 11:34] LABS: Free T4 (Free Thyroxine) 1.01 ng/dL (0.71-1.85)
--- NOTE | 2022-04-12 12:18 | PM.PSYDC ---
DS: Providers Provider Date of Service: 04/12/22 Date of admission: 04/09/22 20:32 Date of discharge: 04/12/22 Primary care physician: [place] Physician Admitting clinician: Robert Ramirez Attending physician on admission: Robert Raimrez Consults: 04/10/22 15:36 Consult to Hospitalist Routine Consulting Provider: Hospitalist Reason For Exam: unexplained pancytopenia and LFTs elevation Attending physician on discharge: Ree Greenwood Discharging clinician: Ree Greenwood DS: Diagnosis Discharge Diagnosis (1) Alcoholic fatty liver: (2) Schizoaffective disorder: Status: Acute (3) Suicidal ideation: Status: Acute DS: Medications Discharge Medications Home Medications: Home Medications Medication Instructions Recorded Confirmed quetiapine 200 mg tablet (Seroquel) 1 tab PO BEDTIME 04/09/22 04/09/22 risperidone 2 mg tablet (Risperdal) 1 tab PO BEDTIME 04/09/22 04/09/22 Mental Status Exam Mental Status Exam Patient Appearance: Disheveled, Perspiring and Unkempt Patient Orientation: Person (internmittent), Place (no), Time (no) and Situation (no) Level of Consciousness: Disoriented Patient Behavior: Cooperative, Suspicious, Restless, Anxious and Confused Mood Description: Suspicious, Anxious and Sad Affect Description: Labile Patient Cognition Impaired: Yes Ability to Follow Directions: Poor Speech Pattern: Perseverating Memory Description: Immediate Impaired and Recent Impaired Hallucinations: Auditory (responding to internal stimuli) and Visual Thought Process: Disoriented and Confusion Judgement: Poor Data Data Completed and Pending Completed studies during hospitalization [Text1]: 04/09/22 04/09/22 04/09/22 13:49 13:50 13:55 WBC 3.3 L RBC 4.20 L Hgb 13.9 L Hct 40.2 L MCV 95.7 MCH 33.1 H MCHC 34.6 RDW 12.0 Plt Count 153 L MPV 9.1 L Immature Gran % (Auto) 0.3 Neut % (Auto) 50.3 Lymph % (Auto) 35.0 Turner % (Auto) 12.9 H Eos % (Auto) 1.2 Baso % (Auto) 0.3 Lymph # (Auto) 1.2 Turner # (Auto) 0.4 Eos # (Auto) 0.0 Baso # (Auto) 0.0 Abs Immat Gran (auto) 0.01 Absolute Neuts (auto) 1.7 L Absolute Nucleated RBC 0.000 Nucleated RBC % (auto) 0.0 Smear Path Review PT INR Sodium Potassium Chloride Carbon Dioxide Anion Gap BUN Creatinine Estim Creat Clear Calc Estimated GFR POC Glucose Random Glucose Fasting Glucose Estimat Average Glucose Hemoglobin A1c % Calcium Magnesium Total Bilirubin Direct Bilirubin AST ALT Alkaline Phosphatase Ammonia Total Creatine Kinase Total Protein Albumin Triglycerides Cholesterol LDL Cholesterol, Calc HDL Cholesterol Vitamin B1 Vitamin B12 Folate TSH Free T4 Urine Color Urine Appearance Urine pH Ur Specific [place] Urine Protein Urine Glucose (UA) Urine Ketones Urine Blood Urine Nitrite Ur Leukocyte Esterase Urine RBC Urine WBC Ur Squamous Epith Cells Urine Bacteria Hyaline Casts Urine Mucus Urine Opiates Screen Not Detected Urine Fentanyl Screen Not Detected Ur Barbiturates Screen Not Detected Ur Phencyclidine Scrn Not Detected Ur Amphetamines Screen Not Detected U Benzodiazepines Scrn Not Detected Urine Cocaine Screen Not Detected U Marijuana (THC) Screen POSITIVE H Ethyl Alcohol COVID-19 ([facility]) Negative COVID-19 Clin Com See Note 04/09/22 04/09/22 04/10/22 13:55 13:55 08:57 WBC RBC Hgb Hct MCV MCH MCHC RDW Plt Count MPV Immature Gran % (Auto) Neut % (Auto) Lymph % (Auto) Turner % (Auto) Eos % (Auto) Baso % (Auto) Lymph # (Auto) Turner # (Auto) Eos # (Auto) Baso # (Auto) Abs Immat Gran (auto) Absolute Neuts (auto) Absolute Nucleated RBC Nucleated RBC % (auto) Smear Path Review PT INR Sodium 139 Potassium 3.3 Chloride 99 Carbon Dioxide 28 Anion Gap 15 BUN 12 Creatinine 1.11 Estim Creat Clear Calc 69.1 Estimated GFR > 60 POC Glucose Random Glucose 120 H Fasting Glucose Estimat Average Glucose 82 Hemoglobin A1c % 4.5 Calcium 9.1 Magnesium 1.9 Total Bilirubin 1.8 H Direct Bilirubin 1.0 H AST 190 H ALT 99 H Alkaline Phosphatase 84 Ammonia Total Creatine Kinase Total Protein 7.4 Albumin 4.4 Triglycerides Cholesterol LDL Cholesterol, Calc HDL Cholesterol Vitamin B1 Vitamin B12 Folate TSH Free T4 Urine Color Urine Appearance Urine pH Ur Specific [place] Urine Protein Urine Glucose (UA) Urine Ketones Urine Blood Urine Nitrite Ur Leukocyte Esterase Urine RBC Urine WBC Ur Squamous Epith Cells Urine Bacteria Hyaline Casts Urine Mucus Urine Opiates Screen Urine Fentanyl Screen Ur Barbiturates Screen Ur Phencyclidine Scrn Ur Amphetamines Screen U Benzodiazepines Scrn Urine Cocaine Screen U Marijuana (THC) Screen Ethyl Alcohol 235 COVID-19 ([facility]) COVID-19 Clin Com 04/10/22 04/10/22 04/11/22 08:57 08:57 07:16 WBC 2.5 L RBC 3.95 L Hgb 13.3 L Hct 38.2 L MCV 96.7 MCH 33.7 H MCHC 34.8 RDW 11.8 Plt Count 111 L D MPV 9.7 Immature Gran % (Auto) Neut % (Auto) Lymph % (Auto) Turner % (Auto) Eos % (Auto) Baso % (Auto) Lymph # (Auto) Turner # (Auto) Eos # (Auto) Baso # (Auto) Abs Immat Gran (auto) Absolute Neuts (auto) Absolute Nucleated RBC 0.000 Nucleated RBC % (auto) 0.0 Smear Path Review Pending PT INR Sodium Potassium Chloride Carbon Dioxide Anion Gap BUN Creatinine Estim Creat Clear Calc Estimated GFR POC Glucose Random Glucose Fasting Glucose Estimat Average Glucose Hemoglobin A1c % Calcium Magnesium 1.5 L Total Bilirubin Direct Bilirubin AST ALT Alkaline Phosphatase Ammonia Total Creatine Kinase Total Protein Albumin Triglycerides 50 Cholesterol 160 LDL Cholesterol, Calc 48 HDL Cholesterol 102 Vitamin B1 Vitamin B12 726 Folate 6.6 TSH 6.03 H Free T4 0.92 Urine Color Urine Appearance Urine pH Ur Specific [place] Urine Protein Urine Glucose (UA) Urine Ketones Urine Blood Urine Nitrite Ur Leukocyte Esterase Urine RBC Urine WBC Ur Squamous Epith Cells Urine Bacteria Hyaline Casts Urine Mucus Urine Opiates Screen Urine Fentanyl Screen Ur Barbiturates Screen Ur Phencyclidine Scrn Ur Amphetamines Screen U Benzodiazepines Scrn Urine Cocaine Screen U Marijuana (THC) Screen Ethyl Alcohol COVID-19 ([facility]) COVID-19 Clin Com 04/11/22 04/11/22 04/12/22 07:16 07:16 05:35 WBC RBC Hgb Hct MCV MCH MCHC RDW Plt Count MPV Immature Gran % (Auto) Neut % (Auto) Lymph % (Auto) Turner % (Auto) Eos % (Auto) Baso % (Auto) Lymph # (Auto) Turner # (Auto) Eos # (Auto) Baso # (Auto) Abs Immat Gran (auto) Absolute Neuts (auto) Absolute Nucleated RBC Nucleated RBC % (auto) Smear Path Review PT 11.3 INR 1.0 Sodium 136 Potassium 4.2 D Chloride 100 Carbon Dioxide 28 Anion Gap 12 BUN 15 Creatinine 0.80 Estim Creat Clear Calc 81.6 Estimated GFR > 60 POC Glucose 115 Random Glucose Fasting Glucose 98 Estimat Average Glucose Hemoglobin A1c % Calcium 9.5 Magnesium 1.5 L Total Bilirubin 1.5 H Direct Bilirubin 0.9 H AST 139 H ALT 84 H Alkaline Phosphatase 74 Ammonia Total Creatine Kinase Total Protein 6.6 Albumin 3.9 Triglycerides Cholesterol LDL Cholesterol, Calc HDL Cholesterol Vitamin B1 Vitamin B12 Folate TSH Free T4 Urine Color Urine Appearance Urine pH Ur Specific [place] Urine Protein Urine Glucose (UA) Urine Ketones Urine Blood Urine Nitrite Ur Leukocyte Esterase Urine RBC Urine WBC Ur Squamous Epith Cells Urine Bacteria Hyaline Casts Urine Mucus Urine Opiates Screen Urine Fentanyl Screen Ur Barbiturates Screen Ur Phencyclidine Scrn Ur Amphetamines Screen U Benzodiazepines Scrn Urine Cocaine Screen U Marijuana (THC) Screen Ethyl Alcohol COVID-19 ([facility]) COVID-19 Clin Com 04/12/22 04/12/22 04/12/22 06:36 06:55 06:55 WBC 3.5 L RBC 4.02 L Hgb 13.4 L Hct 39.4 L MCV 98.0 MCH 33.3 H MCHC 34.0 RDW 11.9 Plt Count 130 L MPV 9.0 L Immature Gran % (Auto) 0.6 H Neut % (Auto) 63.8 Lymph % (Auto) 24.3 Turner % (Auto) 8.7 Eos % (Auto) 2.0 Baso % (Auto) 0.6 Lymph # (Auto) 0.8 L Turner # (Auto) 0.3 Eos # (Auto) 0.1 Baso # (Auto) 0.0 Abs Immat Gran (auto) 0.02 Absolute Neuts (auto) 2.2 Absolute Nucleated RBC 0.000 Nucleated RBC % (auto) 0.0 Smear Path Review PT INR Sodium 136 Potassium 4.5 Chloride 101 Carbon Dioxide 27 Anion Gap 13 BUN 14 Creatinine 0.87 Estim Creat Clear Calc 75.0 Estimated GFR > 60 POC Glucose Random Glucose Fasting Glucose 138 H D Estimat Average Glucose Hemoglobin A1c % Calcium 9.9 Magnesium Total Bilirubin 1.6 H Direct Bilirubin AST 127 H ALT 91 H Alkaline Phosphatase 74 Ammonia Total Creatine Kinase 115 Total Protein 7.5 Albumin 4.5 Triglycerides Cholesterol LDL Cholesterol, Calc HDL Cholesterol Vitamin B1 Vitamin B12 Folate TSH Free T4 Urine Color DK YELLOW Urine Appearance HAZY Urine pH 6.0 Ur Specific [place] 1.010 Urine Protein TRACE Urine Glucose (UA) NEG Urine Ketones NEG Urine Blood 2+ H Urine Nitrite NEG Ur Leukocyte Esterase TRACE H Urine RBC 1-4 Urine WBC 5-9 H Ur Squamous Epith Cells 2+ Urine Bacteria TRACE Hyaline Casts 0-2 Urine Mucus 1+ Urine Opiates Screen Urine Fentanyl Screen Ur Barbiturates Screen Ur Phencyclidine Scrn Ur Amphetamines Screen U Benzodiazepines Scrn Urine Cocaine Screen U Marijuana (THC) Screen Ethyl Alcohol COVID-19 ([facility]) COVID-19 Clin Com 04/12/22 04/12/22 04/12/22 06:55 09:40 09:59 WBC RBC Hgb Hct MCV MCH MCHC RDW Plt Count MPV Immature Gran % (Auto) Neut % (Auto) Lymph % (Auto) Turner % (Auto) Eos % (Auto) Baso % (Auto) Lymph # (Auto) Turner # (Auto) Eos # (Auto) Baso # (Auto) Abs Immat Gran (auto) Absolute Neuts (auto) Absolute Nucleated RBC Nucleated RBC % (auto) Smear Path Review PT INR Sodium 135 Potassium 4.2 Chloride 97 Carbon Dioxide 29 Anion Gap 13 BUN Creatinine Estim Creat Clear Calc Estimated GFR POC Glucose Random Glucose Fasting Glucose Estimat Average Glucose Hemoglobin A1c % Calcium Magnesium 1.6 Total Bilirubin Direct Bilirubin AST ALT Alkaline Phosphatase Ammonia 26 Total Creatine Kinase Total Protein Albumin Triglycerides Cholesterol LDL Cholesterol, Calc HDL Cholesterol Vitamin B1 Vitamin B12 Folate TSH 5.39 H Free T4 1.01 Urine Color YELLOW Urine Appearance HAZY Urine pH 6.0 Ur Specific [place] 1.010 Urine Protein NEG Urine Glucose (UA) NEG Urine Ketones NEG Urine Blood 2+ H Urine Nitrite NEG Ur Leukocyte Esterase TRACE H Urine RBC 1-4 Urine WBC 5-9 H Ur Squamous Epith Cells TRACE Urine Bacteria TRACE Hyaline Casts 0-2 Urine Mucus 1+ Urine Opiates Screen Urine Fentanyl Screen Ur Barbiturates Screen Ur Phencyclidine Scrn Ur Amphetamines Screen U Benzodiazepines Scrn Urine Cocaine Screen U Marijuana (THC) Screen Ethyl Alcohol COVID-19 ([facility]) COVID-19 Jade Magnet Com 04/12/22 04/12/22 04/12/22 09:59 09:59 09:59 WBC RBC Hgb Hct MCV MCH MCHC RDW Plt Count MPV Immature Gran % (Auto) Neut % (Auto) Lymph % (Auto) Turner % (Auto) Eos % (Auto) Baso % (Auto) Lymph # (Auto) Turner # (Auto) Eos # (Auto) Baso # (Auto) Abs Immat Gran (auto) Absolute Neuts (auto) Absolute Nucleated RBC Nucleated RBC % (auto) Smear Path Review PT INR Sodium Potassium Chloride Carbon Dioxide Anion Gap BUN Creatinine Estim Creat Clear Calc Estimated GFR POC Glucose Random Glucose Fasting Glucose Estimat Average Glucose Hemoglobin A1c % Calcium Magnesium Total Bilirubin Direct Bilirubin AST ALT Alkaline Phosphatase Ammonia 26 Total Creatine Kinase Total Protein Albumin Triglycerides Cholesterol LDL Cholesterol, Calc HDL Cholesterol Vitamin B1 Pending Vitamin B12 Pending Folate Pending TSH Free T4 Urine Color Urine Appearance Urine pH Ur Specific [place] Urine Protein Urine Glucose (UA) Urine Ketones Urine Blood Urine Nitrite Ur Leukocyte Esterase Urine RBC Urine WBC Ur Squamous Epith Cells Urine Bacteria Hyaline Casts Urine Mucus Urine Opiates Screen Urine Fentanyl Screen Ur Barbiturates Screen Ur Phencyclidine Scrn Ur Amphetamines Screen U Benzodiazepines Scrn Urine Cocaine Screen U Marijuana (THC) Screen Ethyl Alcohol COVID-19 ([facility]) COVID-19 Clin Com 04/12/22 Unknown Urine clean catch - Urine alves top Urine Culture - Pending Imaging Diagnostic Imaging Impressions Abdomen Ultrasound 04/11/22 07:50 IMPRESSION: There is generalized increase in hepatic echotexture, consistent with fatty infiltration or hepatocellular disease. Please correlate clinically. No focal hepatic mass or intrahepatic biliary duct dilatation is seen. No evidence of gallstones. DS: Summary Hospital Course Hospital Course: pt admitted with SI with paln to shoot self withgun; pt was oriented and alet upon admission; on 04/11 overnight pt had acute mental stautus changes and although not typical WD sympotms was started on thiamine and ativan. pt did not have elvated BP or P. He is currently acutely delerious, has pancytopenia, blood in uriney, sweaty, tremulous. Status at Discharge Cognitive/behavioral status at discharge: ACUTE DELERIUM Functional status at discharge: independent ambulation (IMBALANCED GAIT AND PITCHING FORWAD ) Overall status at discharge: patient is not back to baseline Time Spent with Patient Time attestation: Total time spent providing and/or coordinating discharge services: Time spent: Greater than 30 minutes Specific discharge activities: Transfer to [facility] [place] Discharge Plan Discharge Disposition: [facility] Referrals: [facility] [Physician] - 1 Week Discharge Medications: No Action quetiapine [Seroquel] 200 mg tablet 1 tab PO BEDTIME risperidone [Risperdal] 2 mg tablet 1 tab PO BEDTIME Discharge Orders: Discharge Order (Routine); Ordered 04/12/22 Ordered By: Ree Greenwood Forms: Patient Portal Discharge page, Community Support Care Plan Goals: stabilize medically reassess for inpatient psych when medically cleared Health Concerns: acute delrium pancytopenia ?UTI ?wernicke's encephalopathy Plan of Treatment: transfer to [facility] [place] Assessment: delerium, confused, labile mood, sad, tremulous, sweating
[2022-04-12 13:46] VITALS: BP 115/73; PULSE 96; RESP 16; TEMP 37; O2SAT 96
--- NOTE | 2022-04-12 16:52 | PC.NURSE ---
When I arrived on the unit I assessed patient who was on 1:1. He was awake but appeared disorganized. He was able to identify the day of the week and accurately say he is in the hospital. Pt has tremors and auditory and visual hallucinations at baseline.Vital signs were stable at 8am. CIWA @8am was 11 with patient scoring due to visual hallucinations and agitation. I sent the following text to Miriam Greenwood SAILBOAT CAPTAIN, Elbert - experienced mental status changes during the night. Dr Weinberg aware. New labs are mostly resulted. I scored him 11 on CIWA this am and gave him ativan 1mg. ( He had one a few hours ago as well. I am concerned about the urine. He denies pain but has blood in his urine. It also looks questionably positive for UTI. I called lab and Dr Weinberg had not ordered reflex culture ( just reflex microscopic) and the lab has no urine left to culture. Miriam Greenwood then ordered another urinalysis with reflex micro and reflex culture. Repeat urine was collected, notably edis in color and patient had urinary hesitancy during the collection of the urine. Abnormal results of blood work and urinalysis reported to Miriam Greenwood SAILBOAT CAPTAIN. at 8:46 I informed Miriam Greenwood by tiger text that patient remained agitated and confused. At 10:12 am I informed Miriam Greenwood by tiger text He is very agitated/ disorganized/ disoriented, unsteady on his feet. Maybe delirium tremens? He is not presenting as a typical person in withdrawal - no nausea, no sweating, denies headache. tremor is baseline and vitals are stable. Please advise if you want me to give more ativan or not At 10:30 am CIWA was 19. Pt was unsteady on hi feet. At 10:40 after no response from Miguelito Greenwood SAILBOAT CAPTAIN by text or phone I contacted Dr Weinberg by phone. He ordered thiamine 100mg IM and stat CPKs which I entered TOs for. In addition he ordered reconsult hospitalist. I sent tiger text to Dr Carmine DOMÍNGUEZ. Ativan 2mg was given per CIWA protocol. No effect noted. 12n Ciwa was 16. an additional Ativan 2mg was given po. Miriam Greenwood SAILBOAT CAPTAIN informed and assessed patient. Dr Lou and Miriam Greenwood decided to transfer pt to [facility] [place]. Per Marissa Dillard Nurse Insurance Actuary no bed available until 1pm. Multiple attempts were made to call Nurse to Nurse to Mallory SOTO on [facility] [place] and to coordinate transfer without return call. Patient was increasingly agitated and was placed on 2:1 with staff at 1pm. He was attempting to climb sewell and furniture and was more and more difficult to redirect. He was disorganized and hallucinating. His gait was unsteady yet he appeared to have akasthesia. He asked his water pitcher to make him azerbaijani food. He was petting the wall telling me it was a nice dog. He was notably more agitated and kept trying to lift furniture. at 1:43 I informed Miriam Greenwood of the above by tiger text and she ordered an additional one time dose of ativan 2mg po. Again there was no effect. At 2:55 I was informed the [facility] [place] bed was available. I called Nurse to nurse to Mallory SOTO on [facility] [place] at 2:57. At 3:15pm Patient was transferred to [facility] [place] by wheelchair with sitter and security screener.
[2022-04-13 09:35] LABS: Folate 10.8 ng/mL (> or = 4.0); Vitamin B12 779 pg/mL (200-900)
[2022-04-17 11:46] LABS: Vitamin B1 <6 nmol/L (8-30)
== END 2022-04-12 15:08 | disposition short-term general hospital (02) | DRG 754 ==
LOC: HO.ED 16:50 → HO.PADLT16 20:34
PROVIDERS: Clinical Nurse Specialist Psychiatric/Mental Health; Internal Medicine; Physician Assistant; Psychiatry & Neurology Psychiatry; Admitting Provider Registered Nurse; Emergency Provider Emergency Medicine Emergency Medical Services; Visit Provider Psychiatry & Neurology Psychiatry
DX: F32.A Depression, unspecified (principal); D61.818 Other pancytopenia; F25.9 Schizoaffective disorder, unspecified; R45.851 Suicidal ideations; R45.850 Homicidal ideations; F10.239 Alcohol dependence with withdrawal, unspecified; E83.42 Hypomagnesemia; K70.9 Alcoholic liver disease, unspecified; F43.10 Post-traumatic stress disorder, unspecified; Z20.822 Contact with and (suspected) exposure to COVID-19; Z91.51 Personal history of suicidal behavior; Z79.899 Other long term (current) drug therapy
CPT/HCPCS: 36415; 76700; 80048; 80051; 80053; 80061; 80076; 80307; 81001; 82077; 82140; 82550; 82607; 82746; 82947; 83036; 83735; 84425; 84439; 84443; 85025; 85027; 85610; 87086; 87635; 93005; 99285; J3411

== ENCOUNTER 2022-04-12 15:30 | Inpatient (IN) | payer OTHER, SELFPAY ==
--- NOTE | 2022-04-12 12:13 | P.HPHOSP_ITS ---
History of Present Illness Date of Service: 04/12/22 Chief Complaint: ams 57M who was admitted to inpatient psychiatry for SI. course was then complicated by restlessness, tremor, confusion, altered mental status. patient has history of alcohol dependence with alcoholic fatty liver and recent episode of alcoholic hepatitis at [facility] 2020. He drinks about 72 oz of beer per day, his last drink was about 1 week prior to presentation though others have received history of 72 hours. I had seen the patient in consultation on 04/10/2022, that time patient showed mild symptoms of withdrawal, ultrasound abdomen was done which showed fatty liver, lftS and pancytopenia likely around baseline, improved from episode in 2020. family patient's symptoms have worsened, his CIWA scale is now 17. He was given Ativan p.o. but only had mild improvement. Patient is self denies any symptoms. Review of Systems Review of Systems: Yes all other systems are reviewed and are negative [facility] Medical History (Updated 04/12/22 @ 12:18 by Phillip Lou MD) Alcoholic fatty liver Family History Mother No family history of coronary artery disease Other Diabetes Social History Household Members: Friend(s) Housing: Apartment Do you presently have visiting nurse or other home services: No Alcohol intake: current Patient Tobacco Use Status: Former Tobacco user Substance Use Type: Marijuana Advance Directives: No Advance Directives Information Provided: No service: No Sexual orientation: Straight/Heterosexual Meds Allergies Allergy/AdvReac Type Severity Reaction Status Date / Time No Known Allergies Allergy Unverified 07/04/20 17:59 Active Medications: Current Medications Enoxaparin Sodium (Enoxaparin Sodium 40 Mg/0.4 Ml Syringe) 40 mg SUBCUT DAILY [facility] Folic Acid (Folic Acid 1 Mg Tablet) 1 mg PO DAILY [facility] Thiamine HCl 100 mg/ Sodium (Chloride) 101 mls @ 202 mls/hr IV BID [facility] Multivitamins/Vitamin C (Multivitamin Tablet) 1 tab PO DAILY [facility] Pharmacy Consult (Consult Rx Etoh Phenob Po Only) 1 each MISCELLANE ONCE PRN; Protocol PRN Reason: Consult order Sodium Chloride (0.9 % Sodium Chloride Flush 3 Ml Syringe) 3 ml IVFLUSH QSHIFT [facility] Home Medications Medication Instructions Recorded Confirmed Last Taken Type quetiapine 200 mg tablet (Seroquel) 1 tab PO BEDTIME 04/09/22 04/09/22 Unknown History risperidone 2 mg tablet (Risperdal) 1 tab PO BEDTIME 04/09/22 04/09/22 Unknown History Physical Exam Vital Signs and Narrative: General: agitated, restless, tremulous HEENT: atraumatic Neck: normal to visual inspection CVS: S1, S2, RRR Resp: CTA bilateral Chest: non tender GI: soft, non tender, non distended : no CVA tenderness Skin: no rashes Extremities: no edema Neuro: Oriented X3, tremor Psych: cooperative Assessment and Plan (1) Schizoaffective disorder: Status: Acute Plan 57M presented with ams alcohol dependence with withdrawal transfer to medicine telemetry phenobarbital protocol monitor CIWA multi vitamin, thiamine, folic acid alcoholic fatty liver with pancytopenia abstinence recommended schizoaffective disorder with suicidal ideation Seroquel and risperidone one-to-one monitoring DVT prophylaxis with Lovenox full code due to severity of patient's withdrawal symptoms and at risk for further decompensation likely to require at least 2 midnights in the hospital Quality Stroke Does the patient have a stroke diagnosis?: No VTE Prior VTE?: No VTE Risk Level:: Medical - moderate - high VTE Device Contraindication: Treatment Not Indicated VTE Drug Contraindication: N/A - Med Ordered
--- NOTE | 2022-04-12 15:34 | PHA.MEDREC ---
Pharmacy Consult ? Medication Reconciliation Pharmacy has completed the medication reconciliation.
[2022-04-12] MEDS: PHENobarbitaL 200 MG, PHENobarbitaL 30 MG 230 MG PO (17:48)
[2022-04-12] MEDS: Magnesium Oxide 400 MG TABLET PO (18:42)
[2022-04-12] MEDS: PHENobarbitaL 100 MG, PHENobarbitaL 60 MG 160 MG PO (20:35)
[2022-04-12] MEDS: QUEtiapine Fumarate 200 MG TABLET PO ×2 (20:36)
[2022-04-12] MEDS: risperiDONE 2 MG TABLET PO (20:36)
[2022-04-13 07:35] LABS: Hematocrit 38.5 % (42.0-52.0); Hemoglobin 13.1 g/dl (14.0-18.0); Mean Corpuscular Hemoglobin 33.5 pg (27.0-33.0); Mean Corpuscular Volume 98.5 fL (80.0-98.0); Mean Platelet Volume 9.9 fL (9.4-12.4); Platelet Count 113 X10*3/uL (160-400); Red Blood Count 3.91 X10*6/uL (4.60-5.80); White Blood Count 2.8 X10*3/uL (4.8-10.8)
[2022-04-13 07:46] LABS: Alanine Aminotransferase 132 U/L (0-40); Alkaline Phosphatase 66 U/L (39-117); Anion Gap 11 (12-20); Aspartate Amino Transferase 204 U/L (5-37); Bilirubin Total 1.6 mg/dL (0.0-1.0); Blood Urea Nitrogen 10 mg/dL (9-16); Calcium 8.9 mg/dL (8.4-10.2); Carbon Dioxide 27 mmol/L (22-29); Chloride 102 mmol/L (96-108); Estimated Glomerular Filt Rate > 60; Glucose Random 84 mg/dL (60-115); Potassium 3.7 mmol/L (3.3-5.1); Sodium 136 mmol/L (135-145); Total Protein 6.7 g/dL (6.5-8.0)
--- NOTE | 2022-04-13 09:03 | MHC.CM.PN ---
CM attempted to meet with Patient at bedside and his RN indicated that he was sleeping soundly. CM spoke with first Contact/Mother/Stephany @ [phone] who indicated that she knows nothing about her Son. CM attempted to reach Second Contact/Sister/Olivia @ [phone] and the mailbox was full. From what CM can gather, Patient came to the medical floor from M3/Psych, where Patient was being treated for SI and the goal appears to be for Patient to return there once medically cleared. FRANCO has initiated and will follow for dc planning.
[2022-04-13] MEDS: Thiamine HCL 100 MG TABLET PO ×3 (10:16→19:53)
[2022-04-13] MEDS: Multivitamin TABLET 1 TAB PO (10:16)
[2022-04-13] MEDS: Magnesium Oxide 400 MG TABLET PO ×2 (10:16→16:40)
[2022-04-13] MEDS: Folic Acid 1 MG TABLET PO (10:16)
[2022-04-13] MEDS: PHENobarbitaL 15 MG TABLET 45 MG PO ×2 (10:17→19:54)
[2022-04-13] MEDS: Enoxaparin Sodium 40 MG/0.4 ML SYRINGE SUBCUT (10:18)
[2022-04-13 10:38] LABS: Ammonia 23 umol/L (13-55)
--- NOTE | 2022-04-13 11:39 | MHC.CLN ---
F/U PT TRANSFERRED FROM BEHAVIORAL HEALTH UNIT TO MEDICAL FLOOR SEE FULL CLINICAL NUTRITION ASSESSMENT DATED 04/10/22 WILL RE-START ENSURE TID WITH REGULAR DIET TO INCREASE KCALS MONITOR PO INTAKE CLOSELY RD TO CONTINUE FOLLOWING WEEKLY
--- NOTE | 2022-04-13 11:57 | HO.PM.IMPN ---
Subjective Subjective Date of Service: 04/13/22 Interval History: cc: ams interval history:resting comfortably, ciwa improved Review of Systems Review of Systems: Yes Unobtainable due to mental condition Physical Exam Vital Signs: General: obtunded,, no acute distress Resp: CTA bilateral, no accessory muscles used CVS: S1,S2,RRR GI: soft, non tender, non distended Neuro: motor grossly intact, alert Psych: iampired insight Objective Data Active Medications Enoxaparin Sodium (Enoxaparin Sodium 40 Mg/0.4 Ml Syringe) 40 mg SUBCUT DAILY [facility] Last Admin: 04/13/22 10:18 Dose: 40 mg Documented By: LORRI Folic Acid (Folic Acid 1 Mg Tablet) 1 mg PO DAILY [facility] Last Admin: 04/13/22 10:16 Dose: 1 mg Documented By: LORRI Hydroxyzine HCl (Hydroxyzine Hcl 25 Mg Tablet) 25 mg PO Q6H PRN PRN Reason: Anxiety Lorazepam (Lorazepam 1 Mg Tablet) 2 mg PO Q2H PRN PRN Reason: CIWA 12-15 Magnesium Oxide (Magnesium Oxide 400 Mg Tablet) 400 mg PO BIDPC [facility] Last Admin: 04/13/22 10:16 Dose: 400 mg Documented By: LORRI Multivitamins/Vitamin C (Multivitamin Tablet) 1 tab PO DAILY [facility] Last Admin: 04/13/22 10:16 Dose: 1 tab Documented By: LORRI Pharmacy Consult (Consult Rx Etoh Phenob Po Only) 1 each MISCELLANE ONCE PRN; Protocol PRN Reason: Consult order Phenobarbital (Phenobarbital 15 Mg Tablet) 45 mg PO BID [facility]; Protocol Stop: 04/14/22 21:01 Last Admin: 04/13/22 10:17 Dose: 45 mg Documented By: LORRI Phenobarbital (Phenobarbital 15 Mg Tablet) 15 mg PO BID [facility]; Protocol Stop: 04/16/22 21:01 Phenobarbital (Phenobarbital 15 Mg Tablet) 15 mg PO DAILY [facility]; Protocol Stop: 04/18/22 09:01 Quetiapine Fumarate (Quetiapine Fumarate 200 Mg Tablet) 200 mg PO BEDTIME [facility] Last Admin: 04/12/22 20:36 Dose: 200 mg Documented By: ANTOIC Quetiapine Fumarate (Quetiapine Fumarate 200 Mg Tablet) 200 mg PO BEDTIME [facility] Last Admin: 04/12/22 20:36 Dose: 200 mg Documented By: ANTOIC Risperidone (Risperidone 2 Mg Tablet) 2 mg PO BEDTIME [facility] Last Admin: 04/12/22 20:36 Dose: 2 mg Documented By: ANTOIC Sodium Chloride (0.9 % Sodium Chloride Flush 3 Ml Syringe) 3 ml IVFLUSH QSHIFT [facility] Last Admin: 04/13/22 08:52 Dose: Not Given Documented By: LORRI Non-Admin Reason: No Access Thiamine HCl (Thiamine Hcl 100 Mg Tablet) 100 mg PO TID [facility] Last Admin: 04/13/22 10:16 Dose: 100 mg Documented By: LORRI Labs CBC & Chem 7: 04/13/22 05:48 04/13/22 05:48 Labs: Laboratory Results - last 24 hr 04/13/22 04/13/22 04/13/22 05:48 05:48 10:17 MCV 98.5 H MCH 33.5 H MCHC 34.0 RDW 12.0 Plt Count 113 L MPV 9.9 Absolute Nucleated RBC 0.000 Nucleated RBC % (auto) 0.0 Anion Gap 11 L Estim Creat Clear Calc TNP Estimated GFR > 60 Random Glucose 84 Calcium 8.9 D Total Bilirubin 1.6 H Direct Bilirubin 1.0 H AST 204 H ALT 132 H Alkaline Phosphatase 66 Ammonia 23 Total Protein 6.7 Albumin 4.0 Assessment and Plan (1) Pancytopenia: Status: Acute Plan 57M presented with ams ?alcohol dependence with withdrawal continue phenobarb ciwa improving ammonia normal ?multi vitamin, thiamine, folic acid continue to monitor ?alcoholic fatty liver with pancytopenia ?abstinence recommended ?schizoaffective disorder with suicidal ideation ?Seroquel? and risperidone ?one-to-one monitoring ?DVT prophylaxis with Lovenox ?full code reason for continued hospitalization:ongoing treatement for etoh withdrawal Quality Stroke Does the patient have a stroke diagnosis?: No VTE Prior VTE?: No VTE Risk Level:: Medical - moderate - high VTE Device Contraindication: Treatment Not Indicated VTE Drug Contraindication: N/A - Med Ordered
--- NOTE | 2022-04-13 12:17 | MHC.CARE ---
Please consult care team when medically cleared
[2022-04-13] MEDS: hydrOXYzine HCL 25 MG TABLET PO (13:49)
[2022-04-13] MEDS: LORazepam 1 MG TABLET 2 MG PO ×3 (14:35→19:54)
[2022-04-13 15:08] VITALS: BP 99/66; PULSE 90; RESP 18; TEMP 36.7; O2SAT 99
--- NOTE | 2022-04-13 15:59 | PC.NURSE ---
pt belongings brought to floor from [facility], bag labeled and placed in medication room on floor for safe storage.
[2022-04-13] MEDS: Haloperidol Lactate 5 MG/ML VIAL 3 MG IM (17:58)
[2022-04-13] MEDS: diphenhydrAMINE HCL 50 MG/ML VIAL 12.5 MG IM (17:59)
--- NOTE | 2022-04-13 18:04 | PM.EVENT ---
Event Note Date of Service: 04/13/22 Event Note: extremely anxious, agitated and can pause threat to staff not directable. Haldol IM, Benadryl IM to help control symptoms of alcohol withdrawal
[2022-04-13 19:08] VITALS: BP 100/66; PULSE 90; RESP 18; TEMP 36.7; O2SAT 98
[2022-04-13] MEDS: QUEtiapine Fumarate 200 MG TABLET PO ×2 (19:53)
[2022-04-13] MEDS: risperiDONE 2 MG TABLET PO (19:54)
[2022-04-14] MEDS: 0.9 % Sodium Chloride Flush 3 ML SYRINGE IVFLUSH ×2 (01:09→10:24)
[2022-04-14 04:00] VITALS: BP 82/56; PULSE 73; RESP 19; TEMP 36.9; O2SAT 96
[2022-04-14 10:08] VITALS: BP 83/68; PULSE 100; RESP 18; TEMP 36.3; O2SAT 100
--- NOTE | 2022-04-14 10:10 | HO.PM.IMPN ---
Subjective Subjective Date of Service: 04/14/22 Interval History: cc: ams interval history:sleeping comfortable Review of Systems Review of Systems: Yes Unobtainable due to mental condition Physical Exam Vital Signs: Vital Signs: Last Vital Signs Temp 97.4 F 04/14/22 10:08 Pulse 100 04/14/22 10:08 Resp 18 04/14/22 10:08 BP 83/68 L 04/14/22 10:08 Pulse Ox 100 04/14/22 10:08 O2 Del Method 04/14/22 10:08 General: lethargic Resp: CTA bilateral, no accessory muscles used CVS: S1,S2,RRR GI: soft, non tender, non distended Neuro: not particpatory, alert Psych: agitated affect, impaired insight Objective Data Active Medications Enoxaparin Sodium (Enoxaparin Sodium 40 Mg/0.4 Ml Syringe) 40 mg SUBCUT DAILY [facility] Last Admin: 04/13/22 10:18 Dose: 40 mg Documented By: LORRI Folic Acid (Folic Acid 1 Mg Tablet) 1 mg PO DAILY [facility] Last Admin: 04/13/22 10:16 Dose: 1 mg Documented By: LORRI Hydroxyzine HCl (Hydroxyzine Hcl 25 Mg Tablet) 25 mg PO Q6H PRN PRN Reason: Anxiety Last Admin: 04/13/22 13:49 Dose: 25 mg Documented By: LORRI Lorazepam (Lorazepam 1 Mg Tablet) 2 mg PO Q2H PRN PRN Reason: CIWA 12-15 Last Admin: 04/13/22 19:54 Dose: 2 mg Documented By: MICAH Magnesium Oxide ([facility] 400 Mg Tablet) [facility] Last Admin: 04/13/22 16:40 Dose: 400 mg Documented By: LORRI Multivitamins/Vitamin C (Multivitamin Tablet) 1 tab PO DAILY [facility] Last Admin: 04/13/22 10:16 Dose: 1 tab Documented By: LORRI Pharmacy Consult (Consult Rx Etoh Phenob Po Only) 1 each MISCELLANE ONCE PRN; Protocol PRN Reason: Consult order Phenobarbital (Phenobarbital 15 Mg Tablet) 45 mg PO BID [facility]; Protocol Stop: 04/14/22 21:01 Last Admin: 04/13/22 19:54 Dose: 45 mg Documented By: MICAH Phenobarbital (Phenobarbital 15 Mg Tablet) 15 mg PO BID [facility]; Protocol Stop: 04/16/22 21:01 Phenobarbital (Phenobarbital 15 Mg Tablet) 15 mg PO DAILY [facility]; Protocol Stop: 04/18/22 09:01 Quetiapine Fumarate (Quetiapine Fumarate 200 Mg Tablet) 200 mg PO BEDTIME [facility] Last Admin: 04/13/22 19:53 Dose: 200 mg Documented By: MICAH Quetiapine Fumarate (Quetiapine Fumarate 200 Mg Tablet) 200 mg PO BEDTIME [facility] Last Admin: 04/13/22 19:53 Dose: 200 mg Documented By: MICAH Risperidone (Risperidone 2 Mg Tablet) 2 mg PO BEDTIME [facility] Last Admin: 04/13/22 19:54 Dose: 2 mg Documented By: MICAH Sodium Chloride (0.9 % Sodium Chloride Flush 3 Ml Syringe) 3 ml IVFLUSH QSHIFT [facility] Last Admin: 04/14/22 01:09 Dose: 3 ml Documented By: CHIDI Thiamine HCl (Thiamine Hcl 100 Mg Tablet) 100 mg PO TID [facility] Last Admin: 04/13/22 19:53 Dose: 100 mg Documented By: MICAH Labs CBC & Chem 7: 04/13/22 05:48 04/13/22 05:48 Labs: Laboratory Results - last 24 hr 04/13/22 10:17 Ammonia 23 Assessment and Plan (1) Pancytopenia: Status: Acute Plan 57M presented with ams ?alcohol dependence with withdrawal continue phenobarb ammonia normal ?multi vitamin, thiamine, folic acid continue to monitor hypotnesion due to med effect, dehydration, not sepsis ivf, monitor closely ?alcoholic fatty liver with pancytopenia ?abstinence recommended ?schizoaffective disorder with suicidal ideation ?Seroquel? and risperidone ?one-to-one monitoring ?DVT prophylaxis with Lovenox ?full code reason for continued hospitalization:ongoing treatement for etoh withdrawal Quality Stroke Does the patient have a stroke diagnosis?: No VTE Prior VTE?: No VTE Risk Level:: Medical - moderate - high VTE Device Contraindication: Treatment Not Indicated VTE Drug Contraindication: N/A - Med Ordered
[2022-04-14] MEDS: Enoxaparin Sodium 40 MG/0.4 ML SYRINGE SUBCUT (10:20)
[2022-04-14] MEDS: PHENobarbitaL 15 MG TABLET 45 MG PO ×2 (10:22→20:48)
[2022-04-14] MEDS: Thiamine HCL 100 MG TABLET PO ×3 (10:23→20:49)
[2022-04-14] MEDS: Magnesium Oxide 400 MG TABLET PO ×2 (10:23→16:24)
[2022-04-14] MEDS: Folic Acid 1 MG TABLET PO (10:23)
[2022-04-14] MEDS: Multivitamin TABLET 1 TAB PO (10:23)
[2022-04-14] MEDS: Lactated Ringers 500 ML 50 ML IV (11:23)
[2022-04-14 12:00] VITALS: BP 95/65; PULSE 88; RESP 20; O2SAT 98
[2022-04-14 15:13] VITALS: BP 100/62; PULSE 93; RESP 18; TEMP 36.7; O2SAT 100
[2022-04-14] MEDS: LORazepam 1 MG TABLET 2 MG PO (16:24)
--- NOTE | 2022-04-14 18:03 | PC.NURSE ---
Alert and oriented. Denies pain. soft B/P 83/[address] Carmine Art notified. patient asymptomatic. New order to start IV fluids. Ciwa score 2-6, prn ativan given x1 with good effect. 1:1 sitter for safety continues. Fall precautions maintained. Will continue to monitor and treat per plan of care.
[2022-04-14 19:04] VITALS: BP 99/63; PULSE 98; RESP 18; TEMP 37.1; O2SAT 99
[2022-04-14] MEDS: risperiDONE 2 MG TABLET PO (20:49)
[2022-04-14] MEDS: QUEtiapine Fumarate 200 MG TABLET PO (20:49)
[2022-04-15] VITALS (7 sets, daily range): BP systolic 78–128; BP diastolic 39–73; PULSE 78–101; RESP 18–20; TEMP 36.2–37.1; O2SAT 97–100; BMI 21.5
[2022-04-15 06:25] LABS: Hematocrit 38.2 % (42.0-52.0); Hemoglobin 12.9 g/dl (14.0-18.0); Mean Corpuscular HGB Conc 33.8 g/dl (31.0-36.0); Mean Corpuscular Hemoglobin 33.5 pg (27.0-33.0); Mean Corpuscular Volume 99.2 fL (80.0-98.0); Mean Platelet Volume 9.6 fL (9.4-12.4); Platelet Count 156 X10*3/uL (160-400); Red Blood Count 3.85 X10*6/uL (4.60-5.80); White Blood Count 3.8 X10*3/uL (4.8-10.8)
--- NOTE | 2022-04-15 06:30 | PC.NURSE ---
At beginning of the shift, 20:45 pt was upset saying he wasn't going through withdrawls and that he was told he could go home today. I was able to explain why he was still here and what we were doing for him. 1:1 was at bedside but patient still able to pull out IV. Refused another IV. notified. Patient slept on the floor all night with 1:1 in the rook. Patient stated, he didn't want to be seen. There was a camera in his room. Will continue to monitor.
--- NOTE | 2022-04-15 06:34 | PC.NURSE ---
Nursing addendum-patient also refused to wear heart monitor all night.
[2022-04-15 06:35] LABS: INTERNATIONAL NORM RATIO 0.9 (0.9-1.1); Prothrombin Time 10.4 SEC (10.0-13.1)
[2022-04-15 07:07] LABS: Alanine Aminotransferase 134 U/L (0-40); Albumin Level 3.9 g/dL (3.5-5.0); Alkaline Phosphatase 76 U/L (39-117); Aspartate Amino Transferase 125 U/L (5-37); Bilirubin Direct 0.5 mg/dL (0.0-0.5); Bilirubin Total 0.7 mg/dL (0.0-1.0); Blood Urea Nitrogen 18 mg/dL (9-16); Calcium 8.8 mg/dL (8.4-10.2); Estimated Glomerular Filt Rate > 60; Glucose Fasting 97 mg/dL (60-99); Magnesium 1.9 mg/dL (1.6-2.6); Total Protein 6.6 g/dL (6.5-8.0)
[2022-04-15 07:25] LABS: Anion Gap 13 (12-20); Carbon Dioxide 25 mmol/L (22-29); Chloride 102 mmol/L (96-108); Potassium 5.1 mmol/L (3.3-5.1); Sodium 135 mmol/L (135-145)
[2022-04-15] MEDS: PHENobarbitaL 15 MG TABLET PO ×2 (11:21→21:09)
[2022-04-15] MEDS: Thiamine HCL 100 MG TABLET PO ×3 (11:21→21:09)
[2022-04-15] MEDS: Magnesium Oxide 400 MG TABLET PO ×2 (11:22→16:19)
[2022-04-15] MEDS: Multivitamin TABLET 1 TAB PO (11:22)
[2022-04-15] MEDS: Enoxaparin Sodium 40 MG/0.4 ML SYRINGE SUBCUT (11:22)
[2022-04-15] MEDS: Folic Acid 1 MG TABLET PO (11:22)
--- NOTE | 2022-04-15 12:20 | MHC.CARE ---
CARE met briefly with pt on med floor for consult. Pt presented with confusion and illogical in discussion. Pt is not presenting congruent to baseline. CARE will follow up with pt for a full assessment so that a dispo can be made.
--- NOTE | 2022-04-15 14:19 | MHC.CM.PN ---
Per ROUNDS discussion Patient to be evaluated by Psych to assist with dc plan (return to M3 VS home). Care Team and CM to continue to follow PRN.
--- NOTE | 2022-04-15 14:20 | P.PNIM_ITS ---
Subjective Subjective Date of Service: 04/15/22 Interval History: the patient was seen and evaluated this morning Laying in bed, feels better and ready to go home Still having mild tremors bilaterally Denies any fever, chills or shortness of breath No reported other overnight events. Systemic review: No fever, chills or weakness No chest pain, palpitation No shortness of breath or coughing No abdominal pain, nausea or vomiting No urinary symptoms No any rash or wounds Physical Exam Vital Signs: Vital Signs: Last Vital Signs Temp 97.1 F 04/15/22 11:19 Pulse 84 04/15/22 11:19 Resp 20 04/15/22 11:19 BP 112/72 04/15/22 11:19 Pulse Ox 100 04/15/22 11:19 O2 Del Method 04/15/22 11:19 Const: Other: Constitutional : Alert, interactive, not in distress Neck : Normal inspection, Supple Cardiovascular : RRR, no JVP, no lower extremity edema Respiratory : fair bilateral air entry, no crackles, wheezes or rhonchi Gastrointestinal: soft, lax, Normal bowel sounds, Non tender Skin : Warm, Dry Neurological : Alert & oriented to self and place but good it little confused on, No focal deficit , CN 2-12 within normal Objective Data Active Medications Enoxaparin Sodium (Enoxaparin Sodium 40 Mg/0.4 Ml Syringe) 40 mg SUBCUT DAILY [facility] Last Admin: 04/15/22 11:22 Dose: 40 mg Documented By: SATINDER Folic Acid (Folic Acid 1 Mg Tablet) 1 mg PO DAILY [facility] Last Admin: 04/15/22 11:22 Dose: 1 mg Documented By: SATINDER Hydroxyzine HCl (Hydroxyzine Hcl 25 Mg Tablet) 25 mg PO Q6H PRN PRN Reason: Anxiety Last Admin: 04/13/22 13:49 Dose: 25 mg Documented By: LORRI Lorazepam (Lorazepam 1 Mg Tablet) 2 mg PO Q6H PRN PRN Reason: CIWA 12-15 Magnesium Oxide (Magnesium Oxide 400 Mg Tablet) 400 mg PO BIDPC [facility] Last Admin: 04/15/22 11:22 Dose: 400 mg Documented By: SATINDER Multivitamins/Vitamin C (Multivitamin Tablet) 1 tab PO DAILY [facility] Last Admin: 04/15/22 11:22 Dose: 1 tab Documented By: SATINDER Pharmacy Consult (Consult Rx Etoh Phenob Po Only) 1 each MISCELLANE ONCE PRN; Protocol PRN Reason: Consult order Phenobarbital (Phenobarbital 15 Mg Tablet) 15 mg PO BID [facility]; Protocol Stop: 04/16/22 21:01 Last Admin: 04/15/22 11:21 Dose: 15 mg Documented By: SATINDER Phenobarbital (Phenobarbital 15 Mg Tablet) 15 mg PO DAILY [facility]; Protocol Stop: 04/18/22 09:01 Quetiapine Fumarate (Quetiapine Fumarate 200 Mg Tablet) 200 mg PO BEDTIME [facility] Last Admin: 04/15/22 00:46 Dose: Not Given Documented By: WILLIAMS Non-Admin Reason: per MD Risperidone (Risperidone 2 Mg Tablet) 2 mg PO BEDTIME [facility] Last Admin: 04/14/22 20:49 Dose: 2 mg Documented By: WILLIAMS Sodium Chloride (0.9 % Sodium Chloride Flush 3 Ml Syringe) 3 ml IVFLUSH QSHIFT [facility] Last Admin: 04/15/22 11:33 Dose: Not Given Documented By: SATINDER Non-Admin Reason: No Access Thiamine HCl (Thiamine Hcl 100 Mg Tablet) 100 mg PO TID [facility] Last Admin: 04/15/22 11:21 Dose: 100 mg Documented By: SATINDER Labs CBC & Chem 7: 04/15/22 05:59 04/15/22 05:59 Labs: Laboratory Results - last 24 hr 04/15/22 04/15/22 04/15/22 05:59 05:59 05:59 MCV 99.2 H MCH 33.5 H MCHC 33.8 RDW 12.0 Plt Count 156 L D MPV 9.6 Absolute Nucleated RBC 0.000 Nucleated RBC % (auto) 0.0 PT 10.4 INR 0.9 Anion Gap 13 Estim Creat Clear Calc TNP Estimated GFR > 60 Fasting Glucose 97 Calcium 8.8 Magnesium 1.9 Total Bilirubin 0.7 Direct Bilirubin 0.5 AST 125 H ALT 134 H Alkaline Phosphatase 76 Total Protein 6.6 Albumin 3.9 Assessment and Plan (1) Suicidal ideation: Status: Acute (2) Alcohol withdrawal: Status: Acute Plan 57M presented with ams ?alcohol dependence with withdrawal improving slowly but still having tremors continue phenobarb ammonia normal ?multi vitamin, thiamine, folic acid continue to monitor hypotnesion due to med effect, dehydration, not sepsis ivf, monitor closely ?alcoholic fatty liver with pancytopenia ?abstinence recommended ?schizoaffective disorder with suicidal ideation ?Seroquel? and risperidone ?one-to-one monitoring Care team to re-evaluate ?DVT prophylaxis with Lovenox ?full code reason for continued hospitalization:ongoing treatement for etoh withdrawal pending the care team clearance Quality Stroke Does the patient have a stroke diagnosis?: No VTE Prior VTE?: No VTE Risk Level:: Medical - moderate - high VTE Device Contraindication: Treatment Not Indicated VTE Drug Contraindication: N/A - Med Ordered
[2022-04-15] MEDS: 0.9 % Sodium Chloride 1,000 ML 999 ML IV (16:19)
[2022-04-15] MEDS: 0.9 % Sodium Chloride Flush 3 ML SYRINGE IVFLUSH ×2 (16:24→21:09)
[2022-04-15] MEDS: QUEtiapine Fumarate 200 MG TABLET PO (21:09)
[2022-04-15] MEDS: risperiDONE 2 MG TABLET PO (21:09)
[2022-04-16 04:00] VITALS: BP 102/79; PULSE 107; RESP 15; TEMP 37.3; O2SAT 95
--- NOTE | 2022-04-16 05:26 | PC.NURSE ---
Last night patient c/o constipation. I gave patient prune juice and notified Dr. Harvey was ordered but pt had BM prior to giving so patient refused Miralax. This am, pt c/o heartburn. Vomited X2, then asked for ice cream which I told him to hold off on until I heard back from the doctor whom I notified. AM VSS. 1:1 at bedside. Will continue to monitor.
[2022-04-16] MEDS: Magnesium Hydrox/Alum Hydrox 30 ML ORAL.SUSP PO (06:45)
--- NOTE | 2022-04-16 06:47 | PC.NURSE ---
Pt c/o heartburn this am. Vomited X2. Dr ordered Maalox-given. Will pass along in report.
[2022-04-16 07:48] VITALS: BP 113/66; PULSE 81; RESP 18; TEMP 36.9; O2SAT 98
--- NOTE | 2022-04-16 11:44 | MHC.CARE ---
Pt presents as alert, orientated and engaged. Pt? denies current SI/HI/VH/AH. Pt reports he carries a diagnosis of schizoaffective disorder bipolar type. Pt reports the past month he has been re-established with?mental health providers and goes to [facility] biweekly. Pt is requesting to be discharged. Pt stated he volunarty wanted to be admitted for SI after finding out his son started using heroin causing him to feel suicidal. Pt denies substance use though notably?is minimizing his alcohol use. Pt? was on M5 from 04/10- 04/12 the medically admitted for alcohol withdrawal. CARE Team spoke with Pts sister who stated? Pt does well on his medication and has no safety?concerns?when he? his medication compliant though? when he isn't?on medications will act erratically.?? CARE Team left for Pts therapist regarding the next follow up Appt Pt has scheduled. Pt is not voluntary?for readmission?at this time and would like to be discharged home and follow? up with current providers.? CARE Team communicated information to Dr.? Spears.? CARE Team provided Pt with [facility] crisis information.?
[2022-04-16 11:50] VITALS: BP 107/69; PULSE 78; RESP 18; TEMP 37.1; O2SAT 99
[2022-04-16] MEDS: PHENobarbitaL 15 MG TABLET PO (12:12)
[2022-04-16] MEDS: Folic Acid 1 MG TABLET PO (12:12)
[2022-04-16] MEDS: Thiamine HCL 100 MG TABLET PO (12:12)
[2022-04-16] MEDS: Multivitamin TABLET 1 TAB PO (12:12)
[2022-04-16] MEDS: Magnesium Oxide 400 MG TABLET PO (12:12)
[2022-04-16] MEDS: Enoxaparin Sodium 40 MG/0.4 ML SYRINGE SUBCUT (12:13)
--- NOTE | 2022-04-16 12:13 | MHC.CM.PN ---
Per MD in ROUNDS discussion, Patient will be medically cleared for dc to home today, self care(see today's Care Team PN).
[2022-04-16] MEDS: 0.9 % Sodium Chloride Flush 3 ML SYRINGE IVFLUSH (12:56)
[2022-04-16] MEDS: polyethylene glycoL 3350 17 GM POWD.PACK PO (12:57)
--- NOTE | 2022-04-16 13:29 | PM.DS ---
DS: Providers Provider Date of Service: 04/16/22 Date of admission: 04/12/22 15:30 Primary care physician: Unknown Physician Consults: 04/12/22 12:21 Consult for Sitter Routine Reason for consultation: suicidal 04/15/22 09:04 Consult to Care Team Routine Comment: Reason for consultation: suicidal ideation for your eval , med clear DS: Diagnosis Discharge Diagnosis (1) Suicidal ideation: Status: Acute (2) Alcohol withdrawal: Status: Acute DS: Summary Hospital Course Hospital Course: admission note HPI Hospital course The patient was transferred to the medical floor for treatment of alcohol dependence with withdrawal from the psychiatry unit as he was admitted primarily for suicidal ideation. The patient was treated with phenobarbital protocol, Atarax as he required some lorazepam as well to keep his symptoms under control. Started on multivitamin, thiamine and folic acid as his withdrawal resolved. He was able to ambulate and tolerate diet well with no reported problems. He was revaluated by the care team for suicidal ideation as he was kept on one-to-one monitoring during his hospital stay. Care team believe the patient is stable enough to be discharged home and does not need any further psychiatry treatment at this point as he will follow-up with his primary therapist as outpatient. I spoke with the patient myself and he reported he has no thoughts about hurting himself or anyone else as he feels much more stable and steady at this point and not as anxious And worried as the time he came to the hospital in the beginning. Start thiamine and folic acid as prescribed To follow-up with your therapist as scheduled We advise you complete abstinence from alcohol Time Spent with Patient Time attestation: Total time spent providing and/or coordinating discharge services: Discharge coordination time: Greater than 30 minutes Quality: Safe Use of Opioids Does Pt have an Active Cancer Diagnosis on the Problem List?: No Quality: Stroke Does the patient have a stroke diagnosis?: No Physical Exam Vital Signs: Vital Signs: Last Vital Signs Temp 98.7 F 04/16/22 11:50 Pulse 78 04/16/22 11:50 Resp 18 04/16/22 11:50 BP 107/69 04/16/22 11:50 Pulse Ox 99 04/16/22 11:50 O2 Del Method 04/16/22 11:50 BMI result Body Mass Index 21.5 Const: Other: Constitutional : Alert, interactive, not in distress Neck : Normal inspection, Supple Cardiovascular : RRR, no JVP, no lower extremity edema Respiratory : fair bilateral air entry, no crackles, wheezes or rhonchi Gastrointestinal: soft, lax, Normal bowel sounds, Non tender Skin : Warm, Dry Neurological : Alert & oriented, No focal deficit , CN 2-12 within normal Discharge Plan Discharge Patient Disposition: Home, Self-Care Discharge Diagnosis: alcohol withdrawal Suicidal ideation Referrals: [facility] [Other] - 1 Week Physician,Unknown J [Primary Care Provider] - 1 Week Discharge Medications: New folic acid 1 mg Tablet 1 mg PO DAILY 30 Days Qty: 30 0RF thiamine mononitrate (vit B1) 100 mg Tablet 100 mg PO TID 30 Days Qty: 90 0RF Continued quetiapine [Seroquel] 200 mg tablet 1 tab PO BEDTIME risperidone [Risperdal] 2 mg tablet 1 tab PO BEDTIME Discharge Orders: Discharge Order (Routine); Ordered 04/12/22 Ordered By: Phillip Lou Activity on Discharge: As tolerated Stand Alone Forms: Patient Portal Discharge page Care Plan Goals: Read below Health Concerns: Read below Plan of Treatment: Read below Assessment: you were admitted to the hospital from the psychiatry floor for alcohol withdrawal. Received treatment with phenobarbital protocol with good response over the course of hospital stay. You were evaluated by the psychiatry and care team for suicidal ideation home thought your symptoms improved and clear you to go back home. Start thiamine and folic acid as prescribed To follow-up with your therapist as scheduled We advise you complete abstinence from alcohol
--- NOTE | 2022-04-17 12:00 | MHC.CARE ---
CARE Team attempted to complete follow up call, the person who answered stated they were not the correct person.
== END 2022-04-16 16:33 | disposition home or self-care (01) | DRG 775 ==
PROVIDERS: Admitting Provider Internal Medicine; Visit Provider Student in an Organized Health Care Education/Training Program
DX: F10.239 Alcohol dependence with withdrawal, unspecified (principal); D61.818 Other pancytopenia; R45.851 Suicidal ideations; F25.9 Schizoaffective disorder, unspecified; E86.0 Dehydration; K70.0 Alcoholic fatty liver; I95.2 Hypotension due to drugs; Z79.899 Other long term (current) drug therapy
CPT/HCPCS: 36415; 80048; 80076; 82140; 83735; 85027; 85610; J1200; J1650

== ENCOUNTER 2023-03-23 16:35 | Inpatient (IN) | payer OTHER, SELFPAY ==
--- NOTE | 2023-03-23 | ECG_ITS ---
Test Reason : cp Blood Pressure : / mmHG Vent. Rate : 072 BPM Atrial Rate : 072 BPM P-R Int : 138 ms QRS Dur : 082 ms QT Int : 372 ms P-R-T Axes : 071 057 074 degrees QTc Int : 407 ms Normal sinus rhythm with sinus arrhythmia Normal ECG When compared with ECG of 09-APR-2022 18:46, No significant change was found Referred By: Miles Weinberg Electronically Signed By:Paulino Marlow
--- NOTE | ~2023-03-23 | XR_ITS ---
EXAMINATION: XR HAND, RIGHT CLINICAL INFORMATION: Fracture COMPARISON: None available. TECHNIQUE: PA, lateral, and oblique views of the right hand. FINDINGS: There are 3 screws transfixing a minimally displaced fracture of the proximal phalanx of the fourth finger. There is slight radial and dorsal angulation of the distal proximal phalanx with respect to the base. There is some bony callus formation suggestive of evidence of healing. There is an old healed fracture of the base of the fifth metacarpal bone. No other fracture is seen. Joint spaces are normal. There is soft tissue swelling of the proximal fourth finger. XR/XR hand RT min 3V IMPRESSION: ORIF of fracture of proximal phalanx of the fourth finger with bony callus formation suggestive of evidence of healing. Adjacent soft tissue swelling.
--- OUTSIDE RECORDS SUMMARY | 2023-03-23 16:37 | XMS_ITS | Patient Health Record ---
Author Name Unknown Organization [facility] Care Team Providers Care Volunteer Recruiter Name Role Phone Mariaa Banegas Unavailable Adin Woo Unavailable Unavailable ALLERGIES No Known Allergies ENCOUNTERS from 1965 to 2023-03-23 Encounter Location Date Provider Diagnosis [facility] [address] [place] [phone] Nov, Mariaa Banegas SERGEY [facility] [address] [place] [phone] Dec, Adin Woo ZZZ [facility] [address] [place] [phone] Dec, Adin Woo SOCIAL HISTORY Sex Assigned At : Social History Observation Description Sex Assigned At Unknown REASON FOR REFERRAL No Information REASON FOR VISIT No Information MEDICAL (GENERAL) HISTORY Type Description Date Medical History Healthy, non-contributory MENTAL STATUS No Information ASSESSMENTS Encounter Date Diagnosis Assessment Notes Treatment Notes Treatment Clinical Notes Dec, Other MDHx reviewed 68 mg septo w 0.017 mg epi infiltrated 10 ML prep, etch, prime, espitia, rest TPH, check occl, check contact 13 MOL prep, Vitrebond, etch, prime, espitia, Virtuoso liner, rest TPH, check occl, check contact Pt requested filipino on 7, 8, and 9 - polished Pt satisfied PA of 31 reveals PARL, unrestorabe. 30 also has unrestorable caries, but pt would rather keep as long as possible - will leave until PARL. Referred to Dr. Kwon for ext 31 - AF Dec, Other Hygiene notes T X: Med history reviewed with patient. He is healthy. Initial exam completed by DR Cruz. Patient is due next month for a prophy and will get a copy of his xrays at his last office. NV: Prophy in January 2014. Services entered by Sejal Tolbert [facility] Dentist notes: pt presents for comp oral: oce wnl, caries positive as noted: NV 10 ML, 13 MOL, filipino anterior composites. Pt is to bring previous radiographs. Pt aware of caries on 31, states he was told by a previous dentist to leave until it bothered him. Informed pt we will re-asses 31 when radiographs are present - AF PLAN OF TREATMENT No Information Insurance Providers Payer Name Payer Address Payer Phone Insured Name Patient Relationship to Insured Coverage Start Date Coverage End Date Subscriber Number Group Number [facility] Program [address] Attn Claims [facility] [phone] Dae Boswell Self - patient is the insured [id number]
--- OUTSIDE RECORDS SUMMARY | 2023-03-23 16:37 | XMS_ITS | Continuity of Care Document ---
Author Name Unknown Organization [facility] Address [address] [place] [address]- Care Team Providers Care Furnace Combustion Tester Name Role Phone Passer Disha GARCES Primary Care Physician [place] [facility] [place]/07/22 [facility] [address]- Attending Physician: Javier Holland Admitting Physician: Javier Holland Referring Physician: AdmtrJavier Allergies, Adverse Reactions, Alerts No Known Allergies Immunizations Given and Recorded Vaccine Date Status Refusal Reason SARS-CoV-2 mRNA ([id number]) vax 06/30/22 Recorded SARS-CoV-2 (COVID-19) mRNA BNT-162b2 vac 12/31/21 Recorded SARS-CoV-2 (COVID-19) mRNA BNT-162b2 vac 04/03/21 Given SARS-CoV-2 (COVID-19) mRNA BNT-162b2 vac 1 03/08/21 Given influenza virus vaccine, inactivated 10/02/14 Felix rded 1Result Comment: Lena Mcnulty Medications Boostrix (Tdap) intramuscular suspension 0.5 mL, Intramuscular, Once, # 5 mL, 0 Refills, Soft Stop, 07/13/22 9:47:00 EDT, Suspension, [id number], Partial fill upon patient request if the prescription is for a schedule II opioid drug., 0.5 mL Intramuscular Once, 168, c... Start Date: 07/13/22 Status: Ordered folic acid 1 mg oral tablet 1 mg, 1, tablet, By Mouth, Daily, PER [facility] (LAST FILLED 04/18/22 & had no refills), Maintenance, 06/01/22 14:41:00 EDT, ; Start Date: 06/01/22 Status: Ordered levothyroxine 0.025 mg oral tablet 1 tablet = 25 mcg, By Mouth, Daily in AM, for thyroid on an empty stomach, # 30 tablet, 6 Refills, Maintenance, 09/07/22 16:20:00 EST, Tablet, [facility]-[id number], Partial fill upon patient request if the prescription is for a schedule... Start Date: 09/07/22 Status: Ordered RisperDAL 2 mg oral tablet 2 mg, 1, tablet, By Mouth, Daily at bedtime, PER [facility] (LAST FILLED 04/18/22 13 days without [phone]), Maintenance, 06/01/22 14:39:00 EDT, ; Start Date: 06/01/22 Status: Ordered SEROquel 200 mg oral tablet 200 mg, 1, tablet, By Mouth, Daily at bedtime, PER [facility] (LAST FILLED 04/18/22 13 days without [phone]), Maintenance, 06/01/22 14:38:00 EDT, ; Start Date: 06/01/22 Status: Ordered Vitamin B1 100 mg oral tablet 100 mg, 1, tablet, By Mouth, Daily, (Never Picked UP from Pharmacy but has an active script), Maintenance, 06/01/22 14:39:00 EDT, ; Start Date: 06/01/22 Status: Ordered Problem List Condition Confirmation Course Effective Dates Status H ealth Status Informant Acquired hypothyroidism Confirmed Active Bipolar Confirmed Active Chronic bipolar disorder Confirmed Active Social History Social History Type Response Tobacco Use: 4 or less cigar ettes(less than 1/4 pack)/day in last 30 days. Interested in cessation: No. No, Other: Has intermittent cigarettes several times a month. Type: Cigarettes. Sex Patient Care team information Care Team Personnel Name: Shira Wheat RN Position: [facility] RN Member Role: Primary Care Nurse Name: Disha Alvarado Position: [facility] PCO Associate Professional Member Role: PCP Address: Address: [address] [place] [id number] Name: Julius SOTO [place] Position: [facility] RN Member Role: Primary Care Nurse Care Team Related Persons Name: SAMI ULLOA Name: SHAVONNE KENNY Address: [address] [place] [address] Name: MARQUISE CHILDRESS Address: [address] [place] [address] Name: SHANE BAILEY Address: [place] [address]
--- OUTSIDE RECORDS SUMMARY | 2023-03-23 16:37 | XMS_ITS | Continuity of Care Document ---
Author Name Unknown Organization [facility] Address [address] [place] [address]- Care Team Providers Care Intelligent Systems Engineer Name Role Phone Disha Alvarado Primary Care Physician [place] [facility] [place] - 09/14/22 [facility]/[place] [address]- Attending Physician: Disha Alvarado Allergies, Adverse Reactions, Alerts No Known Allergies Immunizations Given and Recorded Vaccine Date Status Refusal Reason SARS-CoV-2 mRNA ([id number]) vax 06/30/22 Recorded SARS-CoV-2 (COVID-19) mRNA BNT-162b2 vac 12/31/21 Recorded SARS-CoV-2 (COVID-19) mRNA BNT-162b2 vac 04/03/21 Given SARS-CoV-2 (COVID-19) mRNA BNT-162b2 vac 1 03/08/21 Given influenza virus vaccine, inactivated 10/02/14 Felix rded 1Result Comment: Lena Mcnulty Medications Boostrix (Tdap) intramuscular suspension 0.5 mL, Intramuscular, Once, # 5 mL, 0 Refills, Soft Stop, 07/13/22 9:47:00 EDT, Suspension, [facility]-[id number], Partial fill upon patient request if the prescription is for a schedule II opioid drug., 0.5 mL Intramuscular Once, 168, c... Start Date: 07/13/22 Status: Ordered folic acid 1 mg oral tablet 1 mg, 1, tablet, By Mouth, Daily, PER [facility] (LAST FILLED 04/18/22 & had no refills), Maintenance, 06/01/22 14:41:00 EDT, ; Start Date: 06/01/22 Status: Ordered levothyroxine 0.025 mg oral tablet 1 tablet = 25 mcg, By Mouth, Daily in AM, for thyroid on an empty stomach, # 30 tablet, 6 Refills, Maintenance, 09/07/22 16:20:00 EST, Tablet, [facility], Partial fill upon patient request if the prescription is for a schedule... Start Date: 09/07/22 Status: Ordered RisperDAL 2 mg oral tablet 2 mg, 1, tablet, By Mouth, Daily at bedtime, PER [facility] (LAST FILLED 04/18/22 13 days without [id number]), Maintenance, 06/01/22 14:39:00 EDT, ; Start Date: 06/01/22 Status: Ordered SEROquel 200 mg oral tablet 200 mg, 1, tablet, By Mouth, Daily at bedtime, PER [facility] (LAST FILLED 04/18/22 13 days without [id number]), [...] Confirmed Active Chronic bipolar disorder Confirmed Active Vital Signs Most recent to oldest [Reference Range]: 1 Height 168 cm (09/07/22 4:07 PM) Weight 65.90 kg (09/07/22 4:07 PM) Oxygen Saturation [94-100 %] 97 % (09/07/22 4:07 PM) Pulse Rate [55-90 bpm] 96 bpm *H* (09/07/22 4:07 PM) Body Mass Index [18.5-24.99 kg/m2] 23.35 kg/m2 (09/07/22 4:07 PM) Blood Pressure [90-138/55-84 mm Hg] 137/ 79mm Hg (09/07/22 4:07 PM) Respiratory Rate [16-30 br/min] 16 br/mi n (09/07/22 4:07 PM) Temperature [96.8-100.4 DegF] 99.3 DegF (09/07/22 4:07 PM) Mode of Delivery (Oxygen) Room air (09/07/22 4:07 PM) Blood pressure sites Arm, left (09/07/22 4:07 PM) Temperature Route Oral (09/07/22 4:07 PM) Weight Obtained Via Standing scale (09/07/22 4:07 PM) Social History Social History Type Response Tobacco Use: 4 or less cigar ettes(less than 1/4 pack)/day in last 30 days. Interested in cessation: No. No, Other: Has intermittent cigarettes several times a month. Type: Cigarettes. Sex Patient Care team information Care Team Personnel Name: Mary Alice SOTO, Shira Veronica Position: [facility] RN Member Role: Primary Care Nurse Name: Disha Alvarado Position: [facility] PCO Associate Professional Member Role: PCP Address: Address: [address] [place] [address]- Name: Julius SOTO [place] Position: [facility] SN RN Member Role: Primary Care Nurse Care Team Related Persons Name: SAMI ULLOA Name: SHAVONNE KENNY Address: home [address] [place] [address] Name: MARQUISE CHILDRESS Address: home [address] [place] [id number] Name: SHANE BAILEY Address: [place] [address]
--- OUTSIDE RECORDS SUMMARY | 2023-03-23 16:37 | XMS_ITS | Continuity of Care Document ---
Author Name Unknown Organization [facility] Address [address] [place] [address]- Care Team Providers Care Restorative Art Embalmer Name Role Phone Not on Staff, PCP Primary Care Physician Unavail able Encounter [facility] Date(s): 03/07/21 - 04/28/21 [facility]/[address] [address] Attending Physician: Bunny James MD Admitting Physician: Bunny James MD Allergies, Adverse Reactions, Alerts Substance Reaction Severity Status NKA Active Immunizations Given and Recorded Vaccine Date Status Refusal Reason SARS-CoV-2 (COVID-19) mRNA BNT-162b2 vac 04/03/21 Given SARS-CoV-2 (COVID-19) mRNA BNT-162b2 vac 1 03/08/21 Given 1Result Comment: Lena Mcnulty Problem List Condition Effective Dates Status Health Status Inform ant Bipolar(Confirmed) Active Social History Social History Type Response Tobacco Use: 4 or less cigar ettes(less than 1/4 pack)/day in last 30 days. Sex
--- OUTSIDE RECORDS SUMMARY | 2023-03-23 16:37 | XMS_ITS | Continuity of Care Document ---
Author Name Unknown Organization [facility] Address [address] [place] [address]- Care Team Providers Care Obstetrician Gynecologist Name Role Phone Disha Alvarado Primary Care Physician [place] [facility] [place] 07/20/22 [facility]/[place] [address]- Attending Physician: Disha Alvarado Allergies, Adverse Reactions, Alerts No Known Allergies Immunizations Given and Recorded Vaccine Date Status Refusal Reason SARS-CoV-2 mRNA ([id number]) vax 06/30/22 Recorded SARS-CoV-2 (COVID-19) mRNA BNT-162b2 vac 12/31/21 Recorded SARS-CoV-2 (COVID-19) mRNA BNT-162b2 vac 04/03/21 Given SARS-CoV-2 (COVID-19) mRNA BNT-162b2 vac 1 03/08/21 Given influenza virus vaccine, inactivated 10/02/14 Felix rded 1Result Comment: Lena Mcnulty Medications Boostrix (Tdap) intramuscular suspension 0.5 mL, Intramuscular, Once, # 5 mL, 0 Refills, Soft Stop, 07/13/22 9:47:00 EDT, Suspension, [facility]-[id number], Partial fill upon patient request if the prescription is for a schedule II opioid drug., 0.5 mL Intramuscular Once, 168, c... Start Date: 07/13/22 Status: Ordered folic acid 1 mg oral tablet 1 mg, 1, tablet, By Mouth, Daily, PER [facility] (LAST FILLED 04/18/22 & had no refills), Maintenance, 06/01/22 14:41:00 EDT, ; Start Date: 06/01/22 Status: Ordered RisperDAL 2 mg oral tablet 2 mg, 1, tablet, By Mouth, Daily at bedtime, PER [facility] (LAST FILLED 04/18/22 13 days without [id number]), Maintenance, 06/01/22 14:39:00 EDT, ; Start Date: 06/01/22 Status: Ordered SEROquel 200 mg oral tablet 200 mg, 1, tablet, By Mouth, Daily at bedtime, PER [facility] (LAST FILLED 04/18/22 13 days without [id number]), [...] Confirmed Active Chronic bipolar disorder Confirmed Active Procedures Procedure Date Related Diagnosis Body Site Status Left thumb- repair at 16 Completed Vital Signs Most recent to oldest [Reference Range]: 1 Height 168 cm (07/13/22 9:20 AM) Weight 60.90 kg (07/13/22 9:20 AM) Oxygen Saturation [94-100 %] 98 % (07/13/22 9:20 AM) Pulse Rate [55-90 bpm] 74 bpm (07/13/22 9:20 AM) Body Mass Index [18.5-24.99 kg/m2] 21.58 kg/m2 (07/13/22 9:20 AM) Blood Pressure [90-138/55-84 mm Hg] 118/ 68mm Hg (07/13/22 9:20 AM) Respiratory Rate [16-30 br/min] 18 br/mi n (07/13/22 9:20 AM) Temperature [96.8-100.4 DegF] 98.4 DegF (07/13/22 9:20 AM) Mode of Delivery (Oxygen) Room air (07/13/22 9:20 AM) Blood pressure sites Arm, left (07/13/22 9:20 AM) Temperature Route Oral (07/13/22 9:20 AM) Weight Obtained Via Standing scale (07/13/22 9:20 AM) Social History Social History Type Response Tobacco Use: 4 or less cigar ettes(less than 1/4 pack)/day in last 30 days. Interested in cessation: No. No, Other: Has intermittent cigarettes several times a month. Type: Cigarettes. Sex Patient Care team information Personnel Name: Disha Alvarado Address: Address: [address] [place] [address]
--- OUTSIDE RECORDS SUMMARY | 2023-03-23 16:37 | XMS_ITS | Continuity of Care Document ---
Author Name Unknown Organization [facility] Address [address] [place] [address]- Care Team Providers Care Extrusion Process Operator Name Role Phone Not on Staff, PCP Primary Care Physician Unavail able Encounter [facility] Date(s): 04/03/21 - 05/03/21 [facility]/[address] [address]- Attending Physician: Javier Holland Admitting Physician: AdmJavier alford Referring Physician: Admtr, ArJeison Allergies, Adverse Reactions, Alerts Substance Reaction Severity [...]
--- OUTSIDE RECORDS SUMMARY | 2023-03-23 16:37 | XMS_ITS | Continuity of Care Document ---
Author Name Unknown Organization [facility] Address [address] [place] [address]- Care Team Providers Care Job Setter Honing Name Role Phone Disha Alvarado Primary Care Physician Encounter [facility] [place] Date(s): 07/16/22 - 09/30/22 [facility]/[place] [address]- Attending Physician: Disha Alvarado Allergies, Adverse Reactions, Alerts No Known Allergies Immunizations Given and Recorded Vaccine Date Status Refusal Reason SARS-CoV-2 mRNA ([id number]) vax 06/30/22 Recorded SARS-CoV-2 (COVID-19) mRNA BNT-162b2 vac 12/31/21 Recorded SARS-CoV-2 (COVID-19) mRNA BNT-162b2 vac 04/03/21 Given SARS-CoV-2 (COVID-19) mRNA BNT-162b2 vac 1 03/08/21 Given influenza virus vaccine, inactivated 10/02/14 Felix rded 1Result Comment: Lena Mcnulty Medications Boostrix (Tdap) intramuscular suspension 0.5 mL, Intramuscular, Once, # 5 mL, 0 Refills, Soft Stop, 07/13/22 9:47:00 EDT, Suspension, [facility]-[id number], Partial fill upon patient request if the prescription is for a schedule II opioid drug., 0.5 mL Intramuscular Once, 168, c... Start Date: 07/13/22 Status: Ordered folic acid 1 mg oral tablet 1 mg, 1, tablet, By Mouth, Daily, PER [facility] (LAST FILLED 04/18/22 & had no refills), Maintenance, 06/01/22 14:41:00 EDT, ; Start Date: 06/01/22 Status: Ordered levothyroxine 0.025 mg oral tablet 1 tablet = 25 mcg, By Mouth, Daily in AM, for thyroid on an empty stomach, # 30 tablet, 6 Refills, Maintenance, 09/07/22 16:20:00 EST, Tablet, [facility]-[id number], Partial fill upon patient request if the prescription is for a schedule... Start Date: 09/07/22 Status: Ordered RisperDAL 2 mg oral tablet 2 mg, 1, tablet, By Mouth, Daily at bedtime, PER [facility] (LAST FILLED 04/18/22 13 days without [id number]), Maintenance, 06/01/22 14:39:00 EDT, ; Start Date: 06/01/22 Status: Ordered SEROquel 200 mg oral tablet 200 mg, 1, tablet, By Mouth, Daily at bedtime, PER [facility] (LAST FILLED 04/18/22 13 days without [...] information Care Team Personnel Name: Mary Alice RN, Shira Veronica Position: S RN Member Role: Primary Care Nurse Name: Disha Alvarado Position: [facility] PCO Associate Professional Member Role: PCP Address: Address: [address] [place] [address]- Name: Julius SOTO, [place] Position: [facility] RN Member Role: Primary Care Nurse Care Team Related Persons Name: SAMI ULLOA Name: SHAVONNE KENNY Address: home [address] [place] [address] Name: MARQUISE CHILDRESS Address: home [address] [place] [phone] Name: SHANE B[place]LEY Address: [place] [address]
--- OUTSIDE RECORDS SUMMARY | 2023-03-23 16:37 | XMS_ITS | Continuity of Care Document ---
Author Name Unknown Organization [facility] Address [address] [place] [address]- Care Team Providers Care Watch Electrician Name Role Phone Not on Staff, PCP Primary Care Physician Unavail able [place] [facility] [place] 06/01/22 - 06/03/[address] [address]- Discharge Disposition: Transfer to [facility] Facility Attending Physician: Ford Hamilton DO Admitting Physician: Ford Hamilton DO Referring Physician: Not on Staff, Referring MD Allergies, Adverse Reactions, Alerts No Known Allergies Immunizations Given and Recorded Vaccine Date Status Refusal Reason SARS-CoV-2 (COVID-19) mRNA BNT-162b2 vac 04/03/21 Given SARS-CoV-2 (COVID-19) mRNA BNT-162b2 vac 1 03/08/21 Given 1Result Comment: Lena Mcnulty Medications folic acid 1 mg oral tablet 1 mg, 1, tablet, By Mouth, Daily, PER [facility] (LAST FILLED 04/18/22 & had no refills), Maintenance, 06/01/22 14:41:00 EDT, ; Start Date: 06/01/22 Status: Ordered RisperDAL 2 mg oral tablet 2 mg, 1, tablet, By Mouth, Daily at bedtime, PER [facility] (LAST FILLED 04/18/22 13 days without [id number]), Maintenance, 06/01/22 14:39:00 EDT, ; Start Date: 06/01/22 Status: Ordered SEROquel 200 mg oral tablet 200 mg, 1, tablet, By Mouth, Daily at bedtime, PER [facility] (LAST FILLED 04/18/22 13 days without [id number]), Maintenance, 06/01/22 14:38:00 EDT, ; Start Date: 06/01/22 Status: Ordered Vitamin B1 100 mg oral tablet 100 mg, 1, tablet, By Mouth, Daily, (Never Picked UP from Pharmacy but has an active script), Maintenance, 06/01/22 14:39:00 EDT, ; Start Date: 06/01/22 Status: Ordered Problem List Condition Effective Dates Status Health Status Inform ant Bipolar(Confirmed) Active Vital Signs Most recent to oldest [Reference Range]: 1 2 3 Oxygen Saturation [94-100 %] 100 % (06/03/22 6:19 AM) 100 % (06/02/22 8:49 PM) 98 % (06/02/22 2:34 PM) Pulse Rate [55-90 bpm] 70 bpm (06/03/22 6:19 AM) 72 bpm (06/02/22 8:49 PM) 78 bpm (06/02/22 2:34 PM) Blood Pressure [90-138/55-84 mm Hg] 137/73mm Hg (06/03/22 6:19 AM) 139/75mm Hg *H* (06/02/22 8:49 PM) 113/71mm Hg (06/02/22 2:34 PM) Respiratory Rate [16-30 br/min] 19 br/min (06/03/22 6:19 AM) 16 br/min (06/02/22 8:49 PM) 16 br/min (06/02/22 10:17 AM) Temperature [96.8-100.4 DegF] 98.3 DegF (06/03/22 6:19 AM) 98.5 DegF (06/02/22 8:49 PM) 98.3 DegF (06/02/22 2:34 PM) Mode of Delivery (Oxygen) Room air (06/03/22 6:19 AM) Room air (06/02/22 8:49 PM) Room air (06/02/22 10:17 AM) Blood pressure sites Arm, right (06/03/22 6:19 AM) Arm, right (06/02/22 8:49 PM) Arm, right (06/02/22 2:34 PM) Temperature Route Oral (06/03/22 6:19 AM) Oral (06/02/22 8:49 PM) Oral (06/02/22 2:34 PM) Social History Social History Type Response Tobacco Use: 4 or less cigar ettes(less than 1/4 pack)/day in last 30 days. Sex
--- OUTSIDE RECORDS SUMMARY | 2023-03-23 16:37 | XMS_ITS | Continuity of Care Document ---
Author Name Unknown Organization [facility] Address [address] [place] [address]- Care Team Providers Care Advanced Practice Professional Name Role Phone Not on Staff, PCP Primary Care Physician Unavail able [facility]counter [facility] Date(s): 06/09/21 - 07/09/21 [facility] [address] [place] [address]- Attending Physician: Javier Holland Admitting Physician: Javier Holland Referring Physician: Javier Holland Allergies, Adverse Reactions, Alerts Substance Reaction Severity [...]
--- OUTSIDE RECORDS SUMMARY | 2023-03-23 16:37 | XMS_ITS | Continuity of Care Document ---
Author Name Unknown Organization [facility] ter Address [address] [place] [address]- Care Team Providers Care Biotechnologist Name Role Phone Pati FLEMING, Melanie Primary Care Physician Encounter [facility] [place] Date(s): 04/06/21 - 04/09/[address] [address] Discharge Disposition: A-D/C Home Attending Physician: Edgardo Lazo MD Admitting Physician: Diamante Ramirez MD Referring Physician: Not on Staff, Referring MD Allergies, Adverse Reactions, Alerts Substance Reaction Severity Status NKA Active Immunizations Given and Recorded Vaccine Date Status Refusal Reason SARS-CoV-2 (COVID-19) mRNA BNT-162b2 vac 04/03/21 Given SARS-CoV-2 (COVID-19) mRNA BNT-162b2 vac 1 03/08/21 Given 1Result Comment: Lena Mcnulty Medications Dilaudid Inj 0.5 mg, Injection, IV Push Slowly, Every 4 hours, PRN for Pain , Severe, Routine, 04/06/21 21:12:00EDT Start Date: 04/06/21 Stop Date: 04/09/21 Status: Discontinued oxyCODONE 5 mg oral tablet 5 mg, 1, tablet, By Mouth, Every 6 hours, PRN, # 20 tablet, Refills 0, Tot. Refills 0, Acute 04/15/21 12:09:00 EDT, as needed for pain, 04/09/21 12:09:00 EDT, Route to Pharmacy Electronically, [facility], Partial fill upon patient reques... Start Date: 04/09/21 Stop Date: 04/15/21 Status: Ordered Problem List Condition Effective Dates Status Health Status Inform ant Bipolar(Confirmed) Active Vital Signs Most recent to oldest [Reference Range]: 1 2 3 Weight 66.4 kg (04/08/21 4:51 AM) Oxygen Saturation [94-100 %] 96 % (04/09/21 7:38 AM) 100 % (04/08/21 11:51 PM) 99 % (04/08/21 7:59 PM) Pulse Rate [55-90 bpm] 72 bpm (04/09/21 7:38 AM) 91 bpm *H* (04/08/21 11:51 PM) 95 bpm *H* (04/08/21 7:59 PM) Blood Pressure [90-138/55-84 mm Hg] 107/64mm Hg (04/09/21 7:38 AM) 101/66mm Hg (04/09/21 12:56 AM) 94/58mm Hg (04/08/21 11:51 PM) Respiratory Rate [16-30 br/min] 19 br/min (04/09/21 7:58 AM) 18 br/min (04/09/21 7:38 AM) 17 br/min (04/09/21 7:28 AM) Temperature [96.8-100.4 DegF] 97.9 DegF (04/09/21 7:38 AM) 98.2 DegF (04/08/21 11:51 PM) 98.0 DegF (04/08/21 7:59 PM) Mode of Delivery (Oxygen) Room air (04/09/21 7:38 AM) Room air (04/08/21 11:51 PM) Room air (04/08/21 7:59 PM) Blood pressure sites Arm, right (04/09/21 7:38 AM) Arm, right (04/09/21 12:56 AM) Arm, right (04/08/21 11:51 PM) Temperature Route Oral (04/09/21 7:38 AM) Oral (04/08/21 11:51 PM) Oral (04/08/21 7:59 PM) Weight Obtained Via Bed scale (04/08/21 4:51 AM) Social History Social History Type Response Tobacco Use: 4 or less cigar ettes(less than 1/4 pack)/day in last 30 days. Sex
--- OUTSIDE RECORDS SUMMARY | 2023-03-23 16:37 | XMS_ITS | Continuity of Care Document ---
Author Name Unknown Organization [facility] ter Address [address] [place] [id number]- Care Team Providers Care Seismograph Supervisor Name Role Phone Not on Staff, PCP Primary Care Physician Unavail able Encounter [facility] Date(s): 03/29/21 - 03/31/[address] [id number] Discharge Disposition: A-D/C Home Attending Physician: Dennis Machado MD Admitting Physician: Ori Jason MD Referring Physician: Not on Staff, Referring MD Allergies, Adverse Reactions, Alerts Substance Reaction Severity Status NKA Active Immunizations Given and Recorded Vaccine Date Status Refusal Reason SARS-CoV-2 (COVID-19) mRNA BNT-162b2 vac 1 03/08/21 Given 1Result Comment: Lena Mcnulty Medications Dilaudid Inj 1 mg, Injection, IV Push Slowly, Every 4 hours, Hold for: sedation, lethargy, RR<12, PRN for Pain , Severe, Routine, 03/30/21 0:18:00 EDT Start Date: 03/30/21 Stop Date: 03/31/21 Status: Discontinued ibuprofen 600 mg oral tablet 600 mg, 1, tablet, By Mouth, 3 times a day, for 3 days, # 9 tablet, Refills 0, Tot. Refills 0, Acute 04/03/21 12:54:00 EDT, 03/31/21 12:54:00 EDT, Route to Pharmacy Electronically, [facility] #[id number], Partial fill upon patient request if the... Start Date: 03/31/21 Stop Date: 04/03/21 Status: Ordered oxyCODONE 5 mg oral tablet 7.5 mg, 1.5, tablet, By Mouth, Every 6 hours, PRN, for 3 days, # 18 tablet, Refills 0, Tot. Refills0, Acute 04/03/21 12:55:00 EDT, Pain , Moderate, 03/31/21 12:55:00 EDT, Route to Pharmacy Electronically, [facility] #[id number], Partial fill upo... Start Date: 03/31/21 Stop Date: 04/03/21 Status: Ordered Tylenol 325 mg oral tablet 650 mg, 2, tablet, By Mouth, Every 6 hours, PRN, for 3 days, # 12 tablet, Refills 0, Tot. Refills 0, Acute 04/03/21 13:00:00 EDT, for pain, 03/31/21 13:00:00 EDT, Route to Pharmacy Electronically, [facility] #[id number], Partial fill upon patient... Start Date: 03/31/21 Stop Date: 04/03/21 Status: Ordered Problem List Condition Effective Dates Status Health Status Inform ant Bipolar(Confirmed) Active Results Radiology Reports * Exam Date Time Procedure Performing Provider Status 03/29/21 10:26 PM Shoulder 1 View Left Malissa Morales; Auth (Verified) Notes: (Shoulder 1 View Left) Reason For Exam: Post-Reduction RESULT: Shoulder 1 View Left Shoulder 1 View Left, 1 views Hx of Present Illness: fall last night; Reason: Post-Reduction; Clinical Question(s): Position Fixation COMPARISON: None. FINDINGS: Anteromedial dislocation has been reduced. There is improved alignment of greater tuberosity fracture fragment though still slightly offset from the humeral head. No glenoid fracture is identified on post reduction imaging. Previously reported left rib fracturesare less apparent. There is soft tissue swelling overlying the left shoulder. IMPRESSION: Successful reduction of anteromedial dislocation. Minimally displaced greater tuberosity fracture fragment improved in alignment. WSN: [id number] Ordering Physician: Tod Jameson Dictated By: Michel Vance MD Dictated Date/Time: 03/29/21 10:29 p Reviewed By: Michel Vance MD Signed By: Michel Vance MD Signed Date/Time: 03/29/21 10:29 pm Transcribed By: JORGE A Transcribed Date/Time: 03/29/21 10:28 pm * Exam Date Time Procedure Performing Provider Status 03/29/21 4:02 PM Humerus Min 2 Views Left Matsuk , Arth ur; Modified Notes: (Humerus Min 2 Views Left) Reason For Exam: Pain RESULT: Humerus Min 2 Views Left Humerus Min 2 Views Left, 2 views HX OF PRESENT ILLNESS: fall last night; Reason: Pain; Clinical Question(s): Fracture COMPARISON: None. FINDINGS: There is a comminuted displaced fracture of the humeral head, with a 3.2 cm fracture fragment laterally, likely the greater tuberosity. Humeral head appears dislocated anterior relative to the glenoid. There are nondisplaced fractures of the left lateral eighth and ninth ribs, possibly with some associated callus. Visualized portion of the left lung is clear. There is soft tissue swelling overlying the left shoulder. IMPRESSION: 1. Left shoulder fracture or dislocation. 2. Age-indeterminate left lateral eighth and ninth rib fractures. WSN: [id number] Ordering Physician: Diana Pena Dictated By: Michel Perera MD Dictated Date/Time: 03/29/21 4:08 pm Reviewed By: Michel Perera MD Signed By: Michel Perera MD Signed Date/Time: 03/29/21 4:08 pm Transcribed By: JORGE A Transcribed Date/Time: 03/29/21 4:05 pm ADDENDUM: Humerus Min 2 Views Left The first impression should read: Left shoulder fracture dislocation. WSN: [id number] Ordering Physician: Diana Pena Dictated By: Michel Perera MD Dictated Date/Time: 03/29/21 7:22 pm Reviewed By: Michel Perera MD Signed By: Michel Perera MD Signed Date/Time: 03/29/21 7:22 pm Transcribed By: JORGE A Transcribed Date/Time: 03/29/21 7:22 pm * Exam Date Time Procedure Performing Provider Status 03/29/21 7:19 PM Shoulder Min 2 Views Left Jeimy Melton; Auth (Verified) Notes: (Shoulder Min 2 Views Left) Reason For Exam: with Pain;Trauma RESULT: Shoulder Min 2 Views Left Shoulder Min 2 Views Left, 3 views HX OF PRESENT ILLNESS: fall last night; Reason: Trauma; with Pain; Clinical Question(s): Fracture; Special Instructions: please include an axillary view COMPARISON: Humerus from earlier today. FINDINGS: Left shoulder fracture dislocation again seen, with displaced fracture fragment and anterior dislocation of the humeral head. Clavicle is intact. Visualized left lung is clear. Soft tissue swelling around the shoulder. IMPRESSION: Left shoulder fracture dislocation. WSN: [id number] Ordering Physician: Tod Jameson Dictated By: Michel Perera MD Dictated Date/Time: 03/29/21 7:21 pm Reviewed By: Michel Perera MD Signed By: Michel Perera MD Signed Date/Time: 03/29/21 7:21 pm Transcribed By: JORGE A Transcribed Date/Time: 03/29/21 7:20 pm Vital Signs Most recent to oldest [Reference Range]: 1 2 3 Height 168 cm (03/31/21 11:00 AM) 168 cm (03/31/21 7:24 AM) 168 cm (03/31/21 4:14 AM) Weight 61.5 kg (03/29/21 9:25 PM) 61.5 kg (03/29/21 5:12 PM) 61.5 kg (03/29/21 3:22 PM) Oxygen Saturation [94-100 %] 97 % (03/31/21 11:00 AM) 98 % (03/31/21 7:24 AM) 98 % (03/31/21 4:14 AM) Pulse Rate [55-90 bpm] 75 bpm (03/31/21 11:00 AM) 73 bpm (03/31/21 7:24 AM) 65 bpm (03/31/21 4:14 AM) Body Mass Index [18.5-24.99] 21.79 (03/29/21 9:25 PM) 21.79 (03/29/21 5:12 PM) 21.79 (03/29/21 3:22 PM) Blood Pressure [90-138/55-84 mm Hg] 108/63mm Hg (03/31/21 11:00 AM) 120/67mm Hg (03/31/21 7:24 AM) 107/63mm Hg (03/31/21 4:14 AM) Respiratory Rate [16-30 br/min] 20 br/min (03/31/21 11:00 AM) 16 br/min (03/31/21 7:37 AM) 20 br/min (03/31/21 7:24 AM) Temperature [96.8-100.4 DegF] 98.1 DegF (6/14/21 11:00 AM) 98.5 DegF (03/31/21 7:24 AM) 98.6 DegF (03/31/21 4:14 AM) Mode of Delivery (Oxygen) Room air (03/31/21 11:00 AM) Room air (03/31/21 7:24 AM) Room air (03/31/21 4:14 AM) Blood pressure sites Arm, right (03/31/21 11:00 AM) Arm, right (03/31/21 7:24 AM) Arm, right (03/31/21 4:14 AM) Temperature Route Oral (03/31/21 11:00 AM) Oral (03/31/21 7:24 AM) Oral (03/31/21 4:14 AM) Dry Weight 61.5 kg (03/29/21 9:25 PM) 61.5 kg (03/29/21 5:12 PM) 61.5 kg (03/29/21 3:22 PM) Weight Obtained Via Standing scale (03/29/21 3:22 PM) Dry Weight Obtained Via Standing scale (03/29/21 3:22 PM) Social History Social History Type Response Tobacco Use: 4 or less cigar ettes(less than 1/4 pack)/day in last 30 days. Interested in cessation: No. No, Type: Cigarettes. Sex
--- NOTE | 2023-03-23 17:50 | PC.ADMIT ---
Pt is a 58 year old male who present to M5 from [facility] ED on a cv status from [facility]
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
[2023-03-23] MEDS: QUEtiapine Fumarate 100 MG TABLET PO (20:10)
[2023-03-24 06:00] VITALS: BP 135/78; PULSE 88; RESP 16
[2023-03-24] MEDS: Levothyroxine Sodium 25 MCG TABLET PO (06:14)
[2023-03-24] MEDS: QUEtiapine Fumarate 50 MG TABLET PO (09:33)
[2023-03-24 10:02] LABS: Alanine Aminotransferase 20 U/L (0-40); Alkaline Phosphatase 83 U/L (39-117); Anion Gap 12 (12-20); Aspartate Amino Transferase 36 U/L (5-37); Bilirubin Total 1.9 mg/dL (0.0-1.0); Blood Urea Nitrogen 11 mg/dL (9-16); Calcium 9.5 mg/dL (8.4-10.2); Carbon Dioxide 28 mmol/L (22-29); Chloride 103 mmol/L (96-108); Cholesterol 168 mg/dL; Estimated Glomerular Filt Rate > 60; Glucose Fasting 77 mg/dL (60-99); HDL Cholesterol 92 mg/dL; LDL Cholesterol Calculated 62 mg/dl; Sodium 139 mmol/L (135-145); Triglycerides 74 mg/dL
[2023-03-24 10:27] LABS: TSH reflex Free T4 4.63 uIU/mL (0.32-4.0); Vitamin B12 313 pg/mL (200-900)
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
[2023-03-24 11:11] LABS: Free T4 (Free Thyroxine) 0.91 ng/dL (0.71-1.85)
[2023-03-24] MEDS: Thiamine HCL 100 MG TABLET PO (12:20)
--- NOTE | 2023-03-24 13:52 | P.CONHOSP_ITS ---
History of Present Illness Data of Consult Service Date: 03/24/23 Requesting physician: Miles Weinberg Primary Care Provider: Unknown Physician HPI Reason for consult: medical H&P 58-year-old male with history of hypothyroidism and alcohol use disorder admitted to Psychiatry consult placed to hospitalist service for medical H& P. The patient is notably tremulous on exam but denies any withdrawal. States this has been ongoing since childhood. He did consume binge drink large amounts of alcohol on Wednesday, Wednesday, and Wednesday after a period of sobriety lasting for months. He states he has several naps of fireball and 2 large bottles of another alcohol. He has no history of alcohol withdrawal seizure. He denies any other withdrawal symptoms including nausea, vomiting, confusion, hallucinations, headache, sweats. He states on 1 of these days, he also used cocaine once. States he has no other history of cocaine abuse. He is also working on quitting cigarettes and has not had any cigarettes in the last 5 days. Review of Systems Review of Systems: General: No fevers, malaise, unintentional weight loss HEENT: No blurred vision, diplopia. No sore throat, nasal congestion, rhino rrhea, sinus pain, ear pain Cardiovascular: No chest pain, palpitations, or leg edema Respiratory: No shortness of breath, wheezing, cough GI: No abdominal pain, nausea, vomiting, diarrhea, constipation, melena, hematochezia : No dysuria, hematuria, increased urinary frequency, decreased urinary output MSK: No myalgia, back pain Neuro: No headaches, weakness, paresthesias, +tremor Skin: No rashes or lesions PMFSH Medical History Alcoholic fatty liver Pancytopenia Schizoaffective disorder Family History Mother No family history of coronary artery disease Other Diabetes Social History Household Members: None Housing: Apartment Do you presently have visiting nurse or other home services: No Alcohol intake: current Patient Tobacco Use Status: Former Tobacco user Use of substances other than those prescribed or required for medical reasons: Yes Substance Use Type: Crack/Cocaine Substance Use Frequency: Recent Binge Last Used Substance: Just Prior to Admission Currently Displaying Signs/Symptoms of Drug Intoxication Withdrawal: No Any prior treatment program specific to substance use: No Have you been hit, kicked, punched, or otherwise hurt by someone within the past year? If so, by whom?: No Do you feel safe in your current relationship?: No Current Relationship Is there a partner from a previous relationship who is making you feel unsafe now?: No Are you made to feel afraid or neglected: No Advance Directives: No Advance Directives Information Provided: No Do you have thoughts of harming others: None Do you have a plan to hurt others: No Plan Recently lost weight without trying: No How much weight loss: Not applicable Eating poorly because of decreased appetite: No Nutrition screen score: 0 Nutrition Risks: No Nutritional Risk Poor oral hygiene: No service: No Current occupational status: unemployed Sexual orientation: Straight/Heterosexual Meds Allergies Allergy/AdvReac Type Severity Reaction Status Date / Time No Known Allergies Allergy Unverified 07/04/20 17:59 Active Medications: Current Medications Acetaminophen (Acetaminophen 325 Mg Tablet) 650 mg PO Q6H PRN PRN Reason: Headache/Pain Mild Scale (1-3) Al Hydroxide/Mg Hydroxide (Magnesium Hydrox/Alum Hydrox 30 Ml Oral.Susp) 30 ml PO Q6H PRN PRN Reason: Heartburn/Nausea Hydroxyzine HCl (Hydroxyzine Hcl 50 Mg Tablet) 50 mg PO Q6H PRN PRN Reason: Anxiety Levothyroxine Sodium (Levothyroxine Sodium 25 Mcg Tablet) 25 mcg PO DAILY@0600 [facility] Last Admin: 03/24/23 06:14 Dose: 25 mcg Lorazepam (Lorazepam 1 Mg Tablet) 1 mg PO Q4H PRN PRN Reason: ciwa 8-12 Lorazepam (Lorazepam 1 Mg Tablet) 2 mg PO Q4H PRN PRN Reason: ciwa 13-17 Magnesium Hydroxide (Milk Of Magnesia 30 Ml Oral.Susp) 30 ml PO DAILY PRN PRN Reason: Constipation Nicotine Polacrilex (Nicotine Polacrilex 2 Mg Gum) 2 mg BUCCAL Q2H PRN PRN Reason: Nicotine Cravings Quetiapine Fumarate (Quetiapine Fumarate 100 Mg Tablet) 100 mg PO BEDTIME [facility] Last Admin: 03/23/23 20:10 Dose: 100 mg Quetiapine Fumarate (Quetiapine Fumarate 50 Mg Tablet) 50 mg PO DAILY [facility] Last Admin: 03/24/23 09:33 Dose: 50 mg Quetiapine Fumarate (Quetiapine Fumarate 50 Mg Tablet) 50 mg PO Q6H PRN PRN Reason: anxiety/restlessness Thiamine HCl (Thiamine Hcl 100 Mg Tablet) 100 mg PO DAILY [facility] Last Admin: 03/24/23 12:20 Dose: 100 mg Trazodone HCl (Trazodone Hcl 50 Mg Tablet) 50 mg PO BEDTIME PRN PRN Reason: Insomnia Home Medications Medication Instructions Recorded Confirmed Last Taken Type quetiapine 200 mg tablet (Seroquel) 1 tab PO BEDTIME 04/09/22 04/12/22 Unknown History risperidone 2 mg tablet (Risperdal) 1 tab PO BEDTIME 04/09/22 04/12/22 Unknown History levothyroxine 25 mcg tablet 25 mcg PO DAILY 03/23/23 03/23/23 Unknown History lorazepam 1 mg tablet (Ativan) 1 mg PO DAILY PRN Anxiety 03/23/23 03/23/23 Unknown History quetiapine 200 mg tablet (Seroquel) 200 mg PO BEDTIME 03/23/23 03/23/23 Unknown History quetiapine 50 mg tablet,extended 50 mg PO DAILY 03/23/23 03/23/23 Unknown History release 24 hr (Seroquel XR) Physical Exam Vital Signs and Narrative: Vital Signs: Last Vital Signs Pulse 88 03/24/23 06:00 Resp 16 03/24/23 06:00 BP 135/78 03/24/23 06:00 Constitutional - Awake and Alert, No apparent distress Eyes - PERRLA, EOMI Cardiovascular - S1S2, RRR, No edema Respiratory - Normal lung expansion, Normal respiratory effort, No respiratory distress, CTA bilaterally Gastrointestinal - NT / ND; +BS; No rebound or guarding Extremities - no calf tenderness bilaterally, no swelling Musculoskeletal - Normal inspection, normal ROM Skin - Warm/Dry except for sweaty palms Neurological - Alert & oriented x3, CN II-XII in tact, 5/5 strength BUE and BLE, tremulous Psychological - Appropriate affect Results Labs 03/24/23 08:18 Labs: Laboratory Results - last 24 hr 03/24/23 03/24/23 08:18 08:18 Anion Gap 12 Estim Creat Clear Calc TNP Estimated GFR > 60 Fasting Glucose 77 Calcium 9.5 D Total Bilirubin 1.9 H AST 36 ALT 20 Alkaline Phosphatase 83 Total Protein 7.0 Albumin 4.0 Triglycerides 74 Cholesterol 168 LDL Cholesterol, Calc 62 HDL Cholesterol 92 Vitamin B12 313 Folate 8.0 TSH 4.63 H Free T4 0.91 Assessment and Plan (1) Routine medical exam: Status: Acute Plan 58-year-old male with history of hypothyroidism and alcohol use disorder admitted to Psychiatry consult placed to hospitalist service for medical H& P. #Schizoaffective disorder -plan per psychiatry #Alcohol use disorder- with mild withdrawal -pt reports tremors are chronic since childhood, as well as sweaty palms, there is concern for withdrawal -Continue monitoring on CIWA -Continue thiamine, added folic acid -plan per psychiatry #Cocaine use -reprots one time use -plan per psychiatry #Hypothyroism -pt is euthyroid with normal free T4 -Continue current dose levothyroxine Thank you for allowing me to participate in this consult. Signing off at this time. Please do not hesitate to call for further questions. Time Spent With Patient Time: Total time managing care of this patient today ____ minutes.
--- NOTE | 2023-03-24 14:00 | PC.NURSE ---
Pt signed 3-day notice. Up on 03/29. MD, SW, and Utilization Review notified.
[2023-03-24 16:28] VITALS: BP 116/80; PULSE 82; RESP 16; TEMP 36.6; O2SAT 98
[2023-03-24] MEDS: QUEtiapine Fumarate 100 MG TABLET PO (19:58)
[2023-03-25 06:00] VITALS: BP 142/79; PULSE 90; RESP 18
[2023-03-25] MEDS: Levothyroxine Sodium 25 MCG TABLET PO (06:19)
[2023-03-25] MEDS: Folic Acid 1 MG TABLET PO (08:32)
[2023-03-25] MEDS: QUEtiapine Fumarate 50 MG TABLET PO (08:32)
[2023-03-25] MEDS: Thiamine HCL 100 MG TABLET PO (08:32)
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
[2023-03-25 17:02] VITALS: BP 136/77; PULSE 74; RESP 16; TEMP 36.4; O2SAT 99
[2023-03-25] MEDS: QUEtiapine Fumarate 100 MG TABLET PO (19:27)
[2023-03-25] MEDS: Lithium Carbonate ER 300 MG TABLET.ER 600 MG PO (19:27)
[2023-03-26] MEDS: Levothyroxine Sodium 25 MCG TABLET PO (06:18)
[2023-03-26 08:53] VITALS: BP 117/80; PULSE 108; RESP 16; TEMP 36.9; O2SAT 98
[2023-03-26] MEDS: LORazepam 1 MG TABLET PO (09:02)
[2023-03-26] MEDS: QUEtiapine Fumarate 50 MG TABLET PO (09:02)
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
[2023-03-26 18:00] VITALS: BP 104/64; PULSE 83; RESP 16; TEMP 37.1; O2SAT 96
[2023-03-26] MEDS: Lithium Carbonate ER 300 MG TABLET.ER 600 MG PO (20:18)
[2023-03-26] MEDS: QUEtiapine Fumarate 100 MG TABLET PO (20:18)
[2023-03-27] MEDS: Magnesium Hydrox/Alum Hydrox 30 ML ORAL.SUSP PO (02:00)
[2023-03-27] MEDS: Levothyroxine Sodium 25 MCG TABLET PO (05:37)
[2023-03-27] MEDS: LORazepam 1 MG TABLET PO (08:29)
[2023-03-27] MEDS: QUEtiapine Fumarate 50 MG TABLET PO (08:29)
[2023-03-27 09:03] VITALS: BP 101/68; PULSE 94; RESP 16; TEMP 36.8; O2SAT 96
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
[2023-03-27] MEDS: QUEtiapine Fumarate 100 MG TABLET PO (20:29)
[2023-03-27] MEDS: Lithium Carbonate ER 300 MG TABLET.ER 600 MG PO (20:29)
[2023-03-27] MEDS: hydrOXYzine HCL 50 MG TABLET PO (20:59)
[2023-03-27 21:33] VITALS: BP 112/68; PULSE 87; RESP 16; TEMP 36.1
[2023-03-28] MEDS: Magnesium Hydrox/Alum Hydrox 30 ML ORAL.SUSP PO (02:08)
[2023-03-28] MEDS: Levothyroxine Sodium 25 MCG TABLET PO (05:59)
[2023-03-28 06:00] VITALS: BP 123/64; PULSE 82; RESP 18; TEMP 36.1; O2SAT 100
[2023-03-28] MEDS: QUEtiapine Fumarate 50 MG TABLET PO (08:30)
[2023-03-28] MEDS: LORazepam 1 MG TABLET PO (08:30)
[2023-03-28 17:46] VITALS: BP 144/88; PULSE 86; RESP 18; TEMP 36.5; O2SAT 99
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
[2023-03-28] MEDS: Lithium Carbonate ER 300 MG TABLET.ER 600 MG PO (20:10)
[2023-03-28] MEDS: QUEtiapine Fumarate 100 MG TABLET PO (20:10)
[2023-03-29] MEDS: Levothyroxine Sodium 25 MCG TABLET PO (05:32)
[2023-03-29 06:00] VITALS: BP 136/76; PULSE 84; RESP 16; TEMP 36.1; O2SAT 99
[2023-03-29 07:47] LABS: Lithium 0.85 mmol/L (0.60-1.20)
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
[2023-03-29] MEDS: LORazepam 1 MG TABLET PO (09:43)
[2023-03-29] MEDS: QUEtiapine Fumarate 50 MG TABLET PO (09:43)
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
== END 2023-03-29 11:46 | disposition home or self-care (01) | DRG 753 ==
PROVIDERS: Psychiatry & Neurology Psychiatry; Admitting Provider Psychiatry & Neurology Psychiatry; Visit Provider Psychiatry & Neurology Psychiatry
DX: F31.2 Bipolar disorder, current episode manic severe with psychotic features (principal); K70.0 Alcoholic fatty liver; R45.851 Suicidal ideations; F14.20 Cocaine dependence, uncomplicated; E03.9 Hypothyroidism, unspecified; F43.10 Post-traumatic stress disorder, unspecified; F10.20 Alcohol dependence, uncomplicated; Z87.891 Personal history of nicotine dependence; Z79.890 Hormone replacement therapy; Z79.899 Other long term (current) drug therapy
CPT/HCPCS: 36415; 73130; 80053; 80061; 80178; 82607; 82746; 84439; 84443; 93005